=== PATIENT | male | born 1975 | race Caucasian/White ===

== ENCOUNTER 2017-05-09 08:43 | Emergency (ER) | payer OTHER ==
[2017-05-09] MEDS ORDERED: SODIUM CHLORIDE 0.9% 1,000 ML IV STA (09:06)
--- NOTE | 2017-05-09 09:12 | ED ---
General Adult HPI - General Chief complaint: Syncope Stated complaint: blurred vision, dizziness, neck pain Time Seen by Provider: 05/09/17 08:45 Source: patient, RN notes reviewed Mode of arrival: wheelchair Limitations: no limitations - History of Present Illness Initial comments: This is a 42-year-old male who presents emergency Department with a past medical history significant for smoking. Patient states this morning when he got up he was very lightheaded times a passout he sat down symptoms seemed to resolve but then they came back again. Patient states while sitting there his vision went blurry and it stayed blurry until he was driving into the hospital here at which point time his symptoms resolved. Patient states he had no chest pain or difficulty breathing or shortness of breath. Patient states she did feel a little lymph node on the right side of his neck this morning but he didn' t think much of that. Patient states he is under a lot of stress and works in a job is quite physical. Patient states he had multiple episodes this morning of feeling like he was given a passout but never did. And he states the blurred vision lasted for probably 45 minutes to an hour. Patient states currently he has no blurred vision. - Related Data Home Medications Medication Instructions Recorded Confirmed Diazepam [Valium] 5 mg PO DIRECTED 03/21/14 03/21/14 buPROPion SR [Wellbutrin SR] 150 mg PO DAILY 03/21/14 03/21/14 Previous Rx's Medication Instructions Recorded Ibuprofen [Motrin] 600 mg PO Q6HR PRN #20 tab 03/21/14 predniSONE 50 mg PO DAILY #5 tab 03/21/14 Allergies Allergy/AdvReac Type Severity Reaction Status Date / Time No Known Allergies Allergy Verified 05/09/17 08:51 Review of Systems ROS Statement: Those systems with pertinent positive or pertinent negative responses have been documented in the HPI. ROS Other: All systems not noted in ROS Statement are negative. 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 Patient is nontoxic and well- hydrated and is in no acute distress. ENT: Neck is soft and supple. No significant lymphadenopathy is noted. Oropharynx is clear. Moist mucous membranes. Neck has full range of motion without eliciting any pain. EYES: The sclera were anicteric and conjunctiva were pink and moist. Extraocular movements were intact and pupils were equal round and reactive to light. Eyelids were unremarkable. PULMONARY: Unlabored respirations. Good breath sounds bilaterally. No audible rales rhonchi or wheezing was noted. CARDIOVASCULAR: There is a regular rate and rhythm without any murmurs gallops or rubs. ABDOMEN: Soft and nontender with normal bowel sounds. No palpable organomegaly was noted. There is no palpable pulsatile mass. SKIN: Skin is clear with no lesions or rashes and otherwise unremarkable. NEUROLOGIC: Patient is alert and oriented x3. Cranial nerves II through XII are grossly intact. Motor and sensory are also intact. Normal speech, volume and content. Symmetrical smile. MUSCULOSKELETAL: Normal extremities with adequate strength and full range of motion. No lower extremity swelling or edema. No calf tenderness. LYMPHATICS: No significant lymphadenopathy is noted PSYCHIATRIC: Normal psychiatric evaluation. Limitations: no limitations Course Vital Signs 05/09/17 05/09/17 05/09/17 08:47 09:07 10:06 Temperature 97.3 F L 98.1 F Pulse Rate 86 71 Pulse Rate [ 76 Sitting] Pulse Rate [ 74 Standing] Pulse Rate [ 71 Supine] Respiratory 18 16 Rate Blood Pressure 157/69 135/86 Blood Pressure 148/86 [Sitting] Blood Pressure 135/72 [Standing] Blood Pressure 137/84 [Supine] O2 Sat by Pulse 99 99 Oximetry Medical Decision Making - Medical Decision Making EKG shows normal sinus rhythm at 70 bpm CA interval is 142 QRS is 88 QT interval 358 QTC is 386. Patient's EKG shows no ST segment elevation or depression or T wave abnormalities are noted. - Lab Data Result diagrams: 05/09/17 09:14 05/09/17 09:14 Lab Results 05/09/17 05/09/17 05/09/17 Range/Units 09:14 09:14 09:14 WBC 6.6 (3.8-10.6) k/uL RBC 5.05 (4.30-5.90) m/uL Hgb 16.1 (13.0-17.5) gm/dL Hct 47.2 (39.0-53.0) % MCV 93.4 (80.0-100.0) fL MCH 31.9 (25.0-35.0) pg MCHC 34.2 (31.0-37.0) g/dL RDW 12.0 (11.5-15.5) % Plt Count 158 (150-450) k/uL PT 10.3 (9.0-12.0) sec INR 1.1 (<1.2) APTT 23.1 (22.0-30.0) sec Sodium 142 (137-145) mmol/L Potassium 4.5 (3.5-5.1) mmol/L Chloride 105 (98-107) mmol/L Carbon Dioxide 28 (22-30) mmol/L Anion Gap 9 mmol/L BUN 13 (9-20) mg/dL Creatinine 1.00 (0.66-1.25) mg/dL Est GFR (MDRD) Af Amer >60 (>60 ml/min/1.73 sqM) Est GFR (MDRD) Non-Af >60 (>60 ml/min/1.73 sqM) Glucose 92 (74-99) mg/dL Calcium 9.9 (8.4-10.2) mg/dL Magnesium 2.0 (1.6-2.3) mg/dL Total Bilirubin 0.6 (0.2-1.3) mg/dL AST 43 (17-59) U/L ALT 57 (21-72) U/L Alkaline Phosphatase 63 (38-126) U/L Total Protein 7.1 (6.3-8.2) g/dL Albumin 4.5 (3.5-5.0) g/dL Disposition Clinical Impression: Near syncope Disposition: Left Against Medical Advice Referrals: Carlyn Henao MD [Primary Care Provider] - 1-2 days Time of Disposition: 10:08
[2017-05-09 09:20] VITALS: PULSE 71
[2017-05-09 09:49] LABS: INR 1.1 (<1.2); Partial Thromboplastin Time 23.1 sec (22.0-30.0); Prothrombin Time 10.3 sec (9.0-12.0)
[2017-05-09 09:51] LABS: ALT 57 U/L (21-72); AST 43 U/L (17-59); Albumin 4.5 g/dL (3.5-5.0); Alkaline Phosphatase 63 U/L (38-126); Anion Gap 9 mmol/L; Blood Urea Nitrogen 13 mg/dL (9-20); Calcium 9.9 mg/dL (8.4-10.2); Carbon Dioxide 28 mmol/L (22-30); Chloride 105 mmol/L (98-107); Glucose 92 mg/dL (74-99); Potassium 4.5 mmol/L (3.5-5.1); Sodium 142 mmol/L (137-145); Total Bilirubin 0.6 mg/dL (0.2-1.3); Total Protein 7.1 g/dL (6.3-8.2)
[2017-05-09 09:56] LABS: HCT 47.2 % (39.0-53.0); HGB 16.1 gm/dL (13.0-17.5); MCH 31.9 pg (25.0-35.0); MCHC 34.2 g/dL (31.0-37.0); MCV 93.4 fL (80.0-100.0); Mean Platelet Volume 7.9; Platelet Count 158 k/uL (150-450); RBC 5.05 m/uL (4.30-5.90); WBC 6.6 k/uL (3.8-10.6)
--- NOTE | 2017-05-09 10:00 | CT ---
EXAMINATION TYPE: CT brain wo con DATE OF EXAM: 05/09/2017 COMPARISON: NONE HISTORY: blurred vision, dizziness, near syncope CT DLP: 1036 mGycm Automated exposure control for dose reduction was used. FINDINGS: Central structures are midline. There is no evidence of hydrocephalus. No acute focal lesion, mass ef fect or midline shift is seen. I do not see evidence of intracranial blood. There is chronic mucoperiosteal thickening involving the left maxillary sinus. The remainder the para nasal sinuses and mastoids are clear. IMPRESSION: 1. NO ACUTE INTRACRANIAL ABNORMALITY. 2. CHRONIC MUCOPERIOSTEAL THICKENING, LEFT MAXILLARY SINUS.
[2017-05-09 10:01] LABS: Creatine Kinase 511 U/L (55-170)
--- NOTE | 2017-05-09 10:02 | XR ---
EXAMINATION TYPE: XR chest 2V DATE OF EXAM: 05/09/2017 HISTORY: syncope. REFERENCE: Previous study dated 12/12/2008. FINDINGS: The lungs are clear. Pleural spaces are clear. The heart is not enlarged. IMPRESSION: NO ACTIVE INTRATHORACIC DISEASE.
[2017-05-09 10:07] VITALS: BP 135/86; RESP 16; TEMP 98.1
[2017-05-09 10:14] LABS: Creatine Kinase MB 2.4 ng/mL (0.0-2.4); Troponin I <0.012 ng/mL (0.000-0.034)
[2017-05-09 10:19] LABS: Eosinophils # (M) 0.07 k/uL (0-0.7); Lymphocytes # (M) 2.05 k/uL (1.0-4.8); Monocytes # (M) 1.06 k/uL (0-1.0); Neutrophils # (M) 3.43 k/uL (1.3-7.7); Neutrophils % (M) 52 %; Nucleated Red Blood Cells 0 /100 WBC (0-0); Polychromasia Present; Total Cells Counted 100
== END 2017-05-09 10:12 | disposition left against medical advice (07) ==
LOC: EC 08:43
DX: R55 Syncope and collapse (principal); H53.8 Other visual disturbances; M54.2 Cervicalgia; F32.9 Major depressive disorder, single episode, unspecified; F41.9 Anxiety disorder, unspecified; F17.200 Nicotine dependence, unspecified, uncomplicated; Z53.29 Procedure and treatment not carried out because of patient's decision for other reasons; Z79.899 Other long term (current) drug therapy
CPT/HCPCS: 36415; 70450; 71046; 80053; 82550; 82553; 83735; 84484; 85025; 85610; 85730; 93005; 96360; 99284

== ENCOUNTER → 2017-06-10 | Outpatient (CLI) | payer OTHER ==
--- NOTE | 2017-06-10 14:27 | EST ---
EXERCISE STRESS AGE: 42 SEX: M HT: 69" WT: 170 PROTOCOL: Oscar Stress Test. STAGE: IV DURATION OF EXERCISE: 12:00 HEART RATE REST: 90 BLOOD PRESSURE REST: 105/68 MAXIMUM HEART RATE ACHIEVED: 155 MAXIMUM BLOOD PRESSURE: 183/67 85% MPHR: 152 100% MPHR: 179 METS: 12.3 INDICATIONS: Chest pain, syncope CLINICAL INFORMATION: Baseline rhythm is a sinus mechanism, normal axis, normal at intervals. Baseline blood pressure 105/68 mmHg. Patient exercised on protocol for 12 minute reaching a peak heart rate of 155 beats per minute, which is equal to 86% maximum predicted heart rate. Maximum peak blood pressure 183/67 mmHg. Test was terminated due to fatigue. There was no chest pains. Electrocardiograph monitoring revealed no evidence of diagnostic ischemic ST deviation. CONCLUSION: 1. Good exercise tolerance with no symptoms of chest pain. 2. Normal electrocardiographic response to exercise stress testing. MMODL / IJN: [id number] /
== END | disposition home or self-care (01) ==
LOC: RADNMMAIN 11:08
PROVIDERS: ATTEND Internal Medicine
DX: R07.9 Chest pain, unspecified (principal); R55 Syncope and collapse
CPT/HCPCS: 93017

== ENCOUNTER 2017-12-06 12:11 | Emergency (ER) | payer OTHER ==
[2017-12-06 12:24] VITALS: BP 115/69; PULSE 81; RESP 18; TEMP 98.8
[2017-12-06] MEDS ORDERED: KETOROLAC 30 MG/ML 1 ML VIAL IM STA (12:59)
--- NOTE | 2017-12-06 13:06 | ED ---
Back Pain HPI - General Chief Complaint: Back Pain/Injury Stated Complaint: LOWER BACK AND RIGHT HIP PAIN Time Seen by Provider: 12/06/17 12:49 Source: patient, RN notes reviewed Mode of arrival: ambulatory Limitations: no limitations - History of Present Illness Initial Comments: This is a 42-year-old male who presents to the emergency department with chief complaint of low back and right hip pain. 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 He states that on he felt a sudden pain in the right side of his back while at work. He states that when he woke up on Thursday morning he had difficulty getting out of bed due to the pain. He states that the back pain has since gone away. Patient now complains of achiness in his right hip and numbness down the anterior part of the right leg down to his toes. He states his leg feels like its asleep. He states the worst of it is in his minaya. Patient denies any specific injuries or trauma. Denies falls. States he has been taking ibuprofen and Tylenol with minimal relief. Denies saddle paresthesias or loss of bladder or bowel function. Denies fevers or chills, chest pain or shortness of breath, abdominal pain, nausea or vomiting. - Related Data Home Medications Medication Instructions Recorded Confirmed Diazepam [Valium] 5 mg PO DIRECTED 03/21/14 03/21/14 buPROPion SR [Wellbutrin SR] 150 mg PO DAILY 03/21/14 03/21/14 Previous Rx's Medication Instructions Recorded Ibuprofen [Motrin] 600 mg PO Q6HR PRN #20 tab 03/21/14 predniSONE 50 mg PO DAILY #5 tab 03/21/14 Allergies Allergy/AdvReac Type Severity Reaction Status Date / Time No Known Allergies Allergy Verified 12/06/17 12:24 Review of Systems ROS Statement: Those systems with pertinent positive or pertinent negative responses have been documented in the HPI. ROS Other: All systems not noted in ROS Statement are negative. 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 HEENT: Head atraumatic, normocephalic. Pupils are equal, round and reactive to light. Extraocular movements intact. Oropharynx moist without erythema or exudate. Neck: Supple. Normal ROM. Cardiovascular: Regular rate and rhythm. No murmurs, rubs or gallops. Chest symmetrical. Respiratory: Lungs clear to auscultation bilaterally. No wheezes, rales or rhonchi. Normal respiratory effort with no use of accessory muscles. Musculoskeletal: Normal range of motion of bilateral hips. There is minimal tenderness over the greater trochanter. Sensation is intact. Pedal pulses are 2+ equal and palpable bilaterally. Skin: [place], warm and dry. Neurological: Alert and oriented x3. CN II-XII grossly intact. Speech is fluent and answers are appropriate. No focal neuro deficits. Psychiatric: Normal mood and affect. No overt signs of depression or anxiety noted. Limitations: no limitations Back exam: Present: normal inspection, full ROM. Absent: tenderness, paraspinal tenderness, vertebral tenderness Course Vital Signs 12/06/17 12:21 Temperature 98.8 F Pulse Rate 81 Respiratory 18 Rate Blood Pressure 115/69 O2 Sat by Pulse 100 Oximetry Medical Decision Making - Medical Decision Making This is a 42-year-old male presents to the emergency department with chief complaint of low back and right hip pain. Patient states that the low back pain has since dissipated but now experiences an ache in his right hip and paresthesias down the right leg. Patient is neurovascularly intact. He is ambulating normally. Computed tomography scan of the lumbosacral spine and right hip was obtained. These revealed no acute abnormalities. Computed tomography scan of the lumbar spine did reveal evidence for mild degenerative changes in L3 to L5. Patient's vital signs are stable and he is in no acute distress. He will be discharged home with recommendation to take anti- inflammatories. Recommended following up with his primary care provider within 1-2 days. - Radiology Data Radiology results: report reviewed, image reviewed CT lumbar spine impression: Mild degenerative disc disease L3 through L4 and L4 through L5. Mild central canal compromise L3 to L4 and L4 to L5. No significant neural compression. CT right hip impression: Normal computed tomography scan of the right hip. CT sacrum impression: Normal computed tomography scan of the sacrum. Disposition Clinical Impression: Right hip pain, Paresthesia of lower extremity Disposition: HOME SELF-CARE Condition: Good Instructions: Acute Low Back Pain (ED), Hip Pain (ED), Paresthesia (ED) Additional Instructions: Please take ibuprofen 600 mg every 6 hours as needed. Please follow up with primary care provider within 1-2 days. Return to emergency department if symptoms should worsen or any concerns arise. Is patient prescribed a controlled substance at d/c from ED?: No Referrals: None,Stated [Primary Care Provider] - 1-2 days Time of Disposition: 14:13
--- NOTE | 2017-12-06 13:50 | CT ---
EXAMINATION TYPE: CT hip RT wo con DATE OF EXAM: 12/06/2017 COMPARISON: None. HISTORY: right hip pain CT DLP: 358.52 mGycm Automated exposure control for dose reduction was used. FINDINGS: The soft tissues are unremarkable. There is no evidence of fracture, dislocation or other o sseous lesion. IMPRESSION: NORMAL CT SCAN OF THE RIGHT HIP.
--- NOTE | 2017-12-06 13:53 | CT ---
EXAMINATION TYPE: CT lumbar spine wo con DATE OF EXAM: 12/06/2017 1:46 PM COMPARISON: HISTORY: Patient complains of low back pain with numbness to right front thigh. CT DLP: 978.58 mGycm Automated exposure control for dose reduction was used. Unenhanced CT of the lumbar spine was performed. Bone and soft tissue window settings are submitted as well as coronal and sagittal reconstructions. FINDINGS: There are mild emphysematous changes in the visualized portions of the lungs. No pleural fl uid is identified. There is mild atheromatous calcification of the arterial vessels. Paraspinal soft tissues are otherwi se unremarkable. Vertebral body height and alignment are maintained. There is no spondylolysis or spondylolisthesis. N o fractures are identified. Intervertebral foramina are widely maintained. There is a concentric disc bulge at L3-4. There is mil d trefoiling of the thecal sac at this level. There is also a concentric disc displacement at L4-5 and there is mild trefoiling of the thecal sac a t this level. No definite protrusion is identified. IMPRESSION: 1. MILD DEGENERATIVE DISC DISEASE, L3-4 AND L4-5. 2. MILD CENTRAL CANAL COMPROMISE, L3-4 AND L4-5. 3. NO SIGNIFICANT NEURAL COMPRESSION. 4. MILD EMPHYSEMATOUS CHANGES WITHIN THE LUNGS.
--- NOTE | 2017-12-06 13:55 | CT ---
EXAMINATION TYPE: CT sacrum wo con DATE OF EXAM: 12/06/2017 COMPARISON: None. HISTORY: Patient complains of low back pain with numbness to right front thigh. CT DLP: 207.17 mGycm Automated exposure control for dose reduction was used. FINDINGS: Soft tissues about the sacrum are normal. Bony structures about the sacrum are normal. There is no fracture, dislocation or bony destructive le arielle. IMPRESSION: NORMAL CT SCAN OF THE SACRUM.
== END 2017-12-06 14:39 | disposition home or self-care (01) ==
LOC: EC 12:11
DX: M25.551 Pain in right hip (principal); R20.2 Paresthesia of skin; M47.816 Spondylosis without myelopathy or radiculopathy, lumbar region; F41.9 Anxiety disorder, unspecified; F32.9 Major depressive disorder, single episode, unspecified; F17.200 Nicotine dependence, unspecified, uncomplicated; Z79.899 Other long term (current) drug therapy
CPT/HCPCS: 72131; 73700; 72192; 99283; 96372; J1885

== ENCOUNTER → 2017-12-10 | Outpatient (CLI) | payer OTHER ==
--- NOTE | 2017-12-11 09:58 | MR ---
EXAMINATION TYPE: MR lumbar spine wo con DATE OF EXAM: 12/10/2017 COMPARISON: None HISTORY: Back pain TECHNIQUE: Multiplanar, multisequence images of the lumbar spine were acquired. FINDINGS: The lumbar spine vertebral bodies maintain normal vertebral body heights and alignment. Bon e marrow signal is within normal limits. Conus medullaris terminates at L1-L2. Distal spinal cord brandon ears unremarkable in signal and morphology. Multilevel disc desiccation is seen. L1-L2: There is a small broad-based disc bulge without significant spinal canal stenosis or neural fo raminal narrowing. L2-L3: There is a broad-based disc bulge with right paracentral annular tear and facet arthropathy re sulting in minimal bilateral neural foraminal narrowing. No significant spinal canal stenosis. L3-L4: There is a broad-based disc bulge, ligamentum flavum buckling and facet arthropathy resulting in mild bilateral neural foraminal narrowing. No significant spinal canal stenosis. L4-L5: There is a right foraminal disc herniation and annular tear resulting in moderate right neural foraminal narrowing and impression upon the exiting L4 nerve root. Left neural foramen and spinal ca nal are patent although there is facet arthropathy and ligamentum flavum buckling. L5-S1: There is a central disc herniation with caudal extrusion of 5 mm mildly narrowing the subarach noid space although there is no significant spinal canal stenosis. Findings are superimposed upon a b road-based disc bulge which results in mild bilateral neural foraminal narrowing in combination with facet arthropathy. IMPRESSION: 1. Right foraminal disc herniation and annular tear at L4-L5 creating moderate right neural foraminal narrowing impressing upon the exiting right L4 nerve root. 2. Central disc herniation at L5-S1 with caudal extrusion of 5 mm. No resultant significant spinal ca nal stenosis. Mild bilateral neural foraminal narrowing is seen. 3. Mild degenerative disc disease at L1-L4 resulting in minimal neural foraminal narrowing at L2-L3 a nd mild neural foraminal narrowing at L3-L4.
== END | disposition home or self-care (01) ==
LOC: RADMRIMAIN 13:20
PROVIDERS: ATTEND Emergency Medicine
DX: M99.73 Connective tissue and disc stenosis of intervertebral foramina of lumbar region (principal); M51.27 Other intervertebral disc displacement, lumbosacral region; M51.36 Other intervertebral disc degeneration, lumbar region
CPT/HCPCS: 72148

== ENCOUNTER 2017-12-25 12:32 | Emergency (ER) | payer OTHER ==
[2017-12-25 12:54] VITALS: BP 152/88; PULSE 96; RESP 18; TEMP 99
--- NOTE | 2017-12-25 13:02 | ED ---
Overdose HPI - General Chief Complaint: Overdose Stated Complaint: Overdose Time Seen by Provider: 12/25/17 12:38 Source: EMS, RN notes reviewed, old records reviewed Mode of arrival: EMS Limitations: no limitations - History of Present Illness Initial Comments: 42 year old male presents with overdose on suboxone and heroin. Patient reports he has had substance abuse for many years, and has never been treated at a hospital in the past for OD. He arrives with family memver after EMS gave patient narcan. At this time he is alert, oriented, and reports he feels well. Patient states that he does not want to stay in the hospital. Denies any other complaints, does state that this was accidental and no suicidal attempt for overdose. - Related Data Home Medications Medication Instructions Recorded Confirmed No Known Home Medications 12/25/17 12/25/17 Allergies Allergy/AdvReac Type Severity Reaction Status Date / Time No Known Allergies Allergy Verified 12/25/17 12:55 Review of Systems ROS Statement: Those systems with pertinent positive or pertinent negative responses have been documented in the HPI. ROS Other: All systems not noted in ROS Statement are negative. 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 Limitations: no limitations General appearance: alert, in no apparent distress Head exam: Present: atraumatic, normocephalic, normal inspection Eye exam: Present: normal appearance, PERRL, EOMI. Absent: scleral icterus, conjunctival injection, periorbital swelling ENT exam: Present: normal exam, mucous membranes moist Neck exam: Present: normal inspection. Absent: tenderness, meningismus, lymphadenopathy Respiratory exam: Present: normal lung sounds bilaterally. Absent: respiratory distress, wheezes, rales, rhonchi, stridor Cardiovascular Exam: Present: regular rate, normal rhythm, normal heart sounds. Absent: systolic murmur, diastolic murmur, rubs, gallop, clicks Neurological exam: Present: alert, oriented X3, CN II-XII intact Psychiatric exam: Present: normal affect, normal mood Skin exam: Present: warm, dry, intact, normal color. Absent: rash Course Vital Signs 12/25/17 12:50 Temperature 99 F Pulse Rate 96 Respiratory 18 Rate Blood Pressure 152/88 O2 Sat by Pulse 99 Oximetry Medical Decision Making - Medical Decision Making 42 year old male presents with OD on heroin and suboxone, he was given Narcan by EMS. Patient informed that we like to monitor patient for 1.5 hours for chance of relapse and needing another dose of narcan. Patient refuses and states he wants to leave. Patient informed signing out AMA. Patient agrees to. Denies suicidal ideation and is alert and oriented. Patient was explained this by multiple nursing staff as well. Contineus to want to leave AMA. Disposition Clinical Impression: Overdose Disposition: Left Against Medical Advice Condition: Good Instructions: Narcotic Abuse (ED) Additional Instructions: Follow up with PCP. Return to ED if any alarming signs of symptoms occur. Patient advised to follow up with Outpatient abuse services. Is patient prescribed a controlled substance at d/c from ED?: No Referrals: None,Stated [Primary Care Provider] - 1-2 days Cindy Torrez MD [STAFF PHYSICIAN] - 1-2 days Time of Disposition: 13:00
== END 2017-12-25 13:14 | disposition left against medical advice (07) ==
LOC: EC 12:32
DX: T40.1X1A Poisoning by heroin, accidental (unintentional), initial encounter (principal); T40.4X1A Poisoning by other synthetic narcotics, accidental (unintentional), initial encounter; T50.7X1A Poisoning by analeptics and opioid receptor antagonists, accidental (unintentional), initial encounter; F17.200 Nicotine dependence, unspecified, uncomplicated
CPT/HCPCS: 99284

== ENCOUNTER 2022-12-21 14:25 | Emergency (ER) | payer OTHER ==
[2022-12-21] MEDS ORDERED: SODIUM CHLORIDE 0.9% 1,000 ML IV ONE (14:33)
[2022-12-21] MEDS ORDERED: ACETAMINOPHEN TAB 500 MG TAB PO STA (14:33)
[2022-12-21 14:39] VITALS: TEMP 97.7
--- NOTE | 2022-12-21 15:10 | ED ---
General Adult HPI - General Chief complaint: Altered Mental Status Stated complaint: poss OD Time Seen by Provider: 12/21/22 14:30 Source: patient, EMS, RN notes reviewed, old records reviewed Mode of arrival: EMS Limitations: no limitations - History of Present Illness Initial comments: This a 47-year-old male who is brought in by EMS because patient was having a decreased level of consciousness. When EMS arrived and going in and out of consciousness and they gave him 0.5 of Narcan and the patient became much more alert and awake and vitals were stable at that time. Patient states he has a headache now and he believes is because the Narcan. Patient does agree that he took some narcotics today. Patient states he was clean for 9 months up until this point. Patient denies any nausea or vomiting. Patient has any chest pain or difficulty breathing. Patient denies any abdominal pain. - Related Data Home Medications Medication Instructions Recorded Confirmed No Known Home Medications 12/25/17 12/25/17 Allergies Allergy/AdvReac Type Severity Reaction Status Date / Time No Known Allergies Allergy Verified 12/25/17 12:55 Review of Systems ROS Statement: Those systems with pertinent positive or pertinent negative responses have been documented in the HPI. ROS Other: All systems not noted in ROS Statement are negative. 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 Patient is nontoxic and well- hydrated and is in mild distress. ENT: Neck is soft and supple. No significant lymphadenopathy is noted. Oropharynx is clear. Moist mucous membranes. Neck has full range of motion without eliciting any pain. EYES: The sclera were anicteric and conjunctiva were pink and moist. Extraocular movements were intact and pupils were equal round and reactive to light. Eyelids were unremarkable. PULMONARY: Unlabored respirations. Good breath sounds bilaterally. No audible rales rhonchi or wheezing was noted. CARDIOVASCULAR: There is a regular rate and rhythm without any murmurs gallops or rubs. ABDOMEN: Soft and nontender with normal bowel sounds. SKIN: Skin is clear with no lesions or rashes and otherwise unremarkable. NEUROLOGIC: Patient is alert and oriented x3. Cranial nerves II through XII are grossly intact. Motor and sensory are also intact. Normal speech, volume and content. Symmetrical smile. MUSCULOSKELETAL: Normal extremities with adequate strength and full range of motion. LYMPHATICS: No significant lymphadenopathy is noted PSYCHIATRIC: Normal psychiatric evaluation. Limitations: no limitations Course Vital Signs 12/21/22 14:31 Temperature 97.7 F Pulse Rate 61 Respiratory 16 Rate Blood Pressure 124/72 O2 Sat by Pulse 94 L Oximetry Medical Decision Making - Medical Decision Making Was pt. sent in by a medical professional or institution (ERIC Nguyen, PROTOTYPE ENGINEER MANAGER, urgent care, hospital, or longterm...) When possible be specific @ -[No] Did you speak to anyone other than the patient for history (EMS, parent, family, police, friend...)? What history was obtained from this source @ -[No] Did you review nursing and triage notes (agree or disagree)? Why? @ -[I reviewed and agree with nursing and triage notes] Were old charts reviewed (outside hosp., previous admission, EMS record, old EKG, old radiological studies, urgent care reports/EKG's, longterm records)? Report findings @ -[No old charts were reviewed] Differential Diagnosis (chest pain, altered mental status, abdominal pain women, abdominal pain men, vaginal bleeding, weakness, fever, dyspnea, syncope, headache, dizziness, GI bleed, back pain, seizure, CVA, palpatations, mental health, musculoskeletal)? @ -Differential Altered Mental Status: Hypoglycemia, DKA, hypercapnia, ETOH, overdose, CO poisoning, trauma, myxedema coma, HTN encephalopathy, infection, encephalitis, psychosis, intercranial hemorrhage, hepatic encephalopathy, meningitis, CVA, this is not meant to be an all-inclusive list EKG interpreted by me (3pts min.). @ -[As above] X-rays interpreted by me (1pt min.). @ -[None done] CT interpreted by me (1pt min.). @ -[None done] U/S interpreted by me (1pt. min.). @ -[None done] What testing was considered but not performed or refused? (CT, X-rays, U/S, labs)? Why? @ -[None] What meds were considered but not given or refused? Why? @ -[None] Did you discuss the management of the patient with other professionals (professionals i.e. , PA, PROTOTYPE ENGINEER MANAGER, lab, RT, psych nurse, perinatal social worker, recreation therapy director, teacher, railway patrol officer, manager women)? Give summary @ -[No] Was smoking cessation discussed for >3mins.? @ -[No] Was critical care preformed (if so, how long)? @ -[No] Were there social determinants of health that impacted care today? How? (Homelessness, low income, unemployed, alcoholism, drug addiction, tr ansportation, low edu. Level, literacy, decrease access to med. care, long term, rehab)? @ -[No] Was there de-escalation of care discussed even if they declined (Discuss DNR or withdrawal of care, Hospice)? DNR status @ -[No] What co-morbidities impacted this encounter? (DM, HTN, Smoking, COPD, CAD, Cancer, CVA, ARF, Chemo, Hep., AIDS, mental health diagnosis, sleep apnea, morbid obesity)? @ -[None] Was patient admitted / discharged? Hospital course, mention meds given and route, prescriptions, significant lab abnormalities, going to OR and other pertinent info. @ -Received Tylenol and a liter of fluid in the emergency department. I went back into the room and reevaluated him he was feeling considerably better and stated he was very upset with himself or having fallen off the wagon. Patient did want to be discharged home after he can help with some transportation. Undiagnosed new problem with uncertain prognosis? @ -[No] Drug Therapy requiring intensive monitoring for toxicity (Heparin, Nitro, Insu jl, Cardizem)? @ -[No] Were any procedures done? @ -[No] Diagnosis/symptom? @ -Opiate overdose Acute, or Chronic, or Acute on Chronic? @ -Acute Uncomplicated (without systemic symptoms) or Complicated (systemic symptoms)? @ -Complicated Side effects of treatment? @ -[No] Exacerbation, Progression, or Severe Exacerbation? @ -[No] Poses a threat to life or bodily function? How? (Chest pain, [place], [place], pneumonia, PE, COPD, DKA, ARF, appy, cholecystitis, CVA, Diverticulitis, Homicidal, Suicidal, threat to staff... and all critical care pts) @ -Yes this could stop him from breathing and kill him Disposition Clinical Impression: Opiate overdose Disposition: HOME SELF-CARE Condition: Good Instructions (If sedation given, give patient instructions): Opioid Use Disorder (ED) Is patient prescribed a controlled substance at d/c from ED?: No Referrals: None,Stated [Primary Care Provider] - 1-2 days Time of Disposition: 15:48
[2022-12-21 16:02] VITALS: BP 118/83; PULSE 59; RESP 18
== END 2022-12-21 16:05 | disposition home or self-care (01) ==
LOC: EC 14:25
DX: T40.601A Poisoning by unspecified narcotics, accidental (unintentional), initial encounter (principal); F12.90 Cannabis use, unspecified, uncomplicated; Z86.59 Personal history of other mental and behavioral disorders
CPT/HCPCS: 96360; 99285

== ENCOUNTER 2023-08-29 15:33 | Inpatient (IN) | payer MEDICAID, OTHER ==
--- NOTE | 2023-08-29 16:56 | ED ---
Psych HPI - General Chief Complaint: Psychiatric Symptoms Stated Complaint: Mental health eval Time Seen by Provider: 08/29/23 16:20 Source: patient, RN notes reviewed, old records reviewed, Caregiver Mode of arrival: ambulatory Limitations: altered mental status - History of Present Illness Initial Comments: This is a 48-year-old male with a complex presentation. Patient comes in for evaluation regarding psychiatric illness concern for seeing things hearing things and increasing paranoia. Patient states he has suffered from psychiatric illness in the past with no formal diagnosis or treatment. Patient does have a long history of substance abuse but also long recent history of not using any illicit drugs greater than a year. Patient at this point is feeling very depressed doing to these pervasive thoughts and feels like he does not want to live anymore and presents to the ER for further need for psychiatric evaluation, patient is also concerned that he may have underlying health issues MD Complaint: suicidal ideation, feels depressed -: unknown Associated Psychiatric Symptoms: racing thoughts, auditory hallucinations Quality: intermittent Improves With: none Worsens With: none Context: not taking psychiatric medications, significant life stressor Associated Symptoms: denies other symptoms Treatments Prior to Arrival: placed on mental health hold If Self Harm: admits thoughts of self harm - Related Data Home Medications Medication Instructions Recorded Confirmed No Known Home Medications 12/25/17 08/30/23 Allergies Allergy/AdvReac Type Severity Reaction Status Date / Time No Known Allergies Allergy Verified 08/29/23 16:58 Review of Systems ROS Statement: Those systems with pertinent positive or pertinent negative responses have been documented in the HPI. ROS Other: All systems not noted in ROS Statement are negative. 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 Absent: scleral icterus, co njunctival injection, periorbital swelling ENT exam: Present: normal exam, mucous membranes moist Neck exam: Present: normal inspection. Absent: tenderness, meningismus, lymphadenopathy Respiratory exam: Present: normal lung sounds bilaterally. Absent: respiratory distress, wheezes, rales, rhonchi, stridor Cardiovascular Exam: Present: regular rate, normal rhythm, normal heart sounds. Absent: systolic murmur, diastolic murmur, rubs, gallop, clicks GI/Abdominal exam: Present: soft, normal bowel sounds. Absent: distended, tenderness, guarding, rebound, rigid Extremities exam: Present: normal inspection, full ROM, normal capillary refill. Absent: tenderness, pedal edema, joint swelling, calf tenderness Back exam: Present: normal inspection Neurological exam: Present: alert, oriented X3, CN II-XII intact Psychiatric exam: Present: normal affect, normal mood Skin exam: Present: warm, dry, intact, normal color. Absent: rash Course Vital Signs 08/29/23 15:44 Temperature 98.0 F Pulse Rate 101 H Respiratory 18 Rate Blood Pressure 134/81 O2 Sat by Pulse 100 Oximetry - Reevaluation(s) Reevaluation #1: 08/29/23 16:59 Medical records reviewed Reevaluation #2: 08/29/23 16:59 Patient symptoms unchanged Reevaluation #3: 08/29/23 17:00 Patient informed of results questions answered Reevaluation #4: Was pt. sent in by a medical professional or institution (, PA, BLOWER INSULATOR, urgent care, hospital, or halfway...) When possible be specific @ -no Did you speak to anyone other than the patient for history (EMS, parent, family, police, friend...)? What history was obtained from this source @ -no Did you review nursing and triage notes (agree or disagree)? Why? @ -agree Are old charts reviewed (outside hosp., previous admission, EMS record, old EKG, old radiological studies, urgent care reports/EKG's, halfway records)? Report findings @ -yes Differential Diagnosis (chest pain, altered mental status, abdominal pain women, abdominal pain men, vaginal bleeding, weakness, fever, dyspnea, syncope, headache, dizziness, GI bleed, back pain, seizure, CVA, palpatations, mental health, musculoskeletal)? @ -prior EKG interpreted by me (3pts min.). @ -no X-rays interpreted by me (1pt min.). @ -no CT interpreted by me (1pt min.). @ -no U/S interpreted by me (1pt. min.). @ -no What testing was considered but not performed or refused? (CT, X-rays, U/S, labs)? Why? @ -none What meds were considered but not given or refused? Why? @ -none Did you discuss the management of the patient with other professionals (professionals i.e. Dr., PA, BLOWER INSULATOR, lab, RT, psych nurse, social worker clinical, senior attorney, teacher, fire control officer, corrections caseworker)? Give summary @ -no Was smoking cessation discussed for >3mins.? @ -no Was critical care preformed (if so, how long)? @ -no Were there social determinants of health that impacted care today? How? (Homele ssness, low income, unemployed, alcoholism, drug addiction, transportation, low edu. Level, literacy, decrease access to med. care, senior living, rehab)? @ -none Was there de-escalation of care discussed even if they declined (Discuss DNR or withdrawal of care, Hospice)? DNR status @ -no What co-morbidities impacted this encounter? (DM, HTN, Smoking, COPD, CAD, Cancer, CVA, ARF, Chemo, Hep., AIDS, mental health diagnosis, sleep apnea, morbid obesity)? @ -none Was patient admitted / discharged? Hospital course, mention meds given and route, prescriptions, significant lab abnormalities, going to OR and other pertinent info. @ -48 mildly admitted for psychiatric evaluation and treatment Undiagnosed new problem with uncertain prognosis? @ -no Drug Therapy requiring intensive monitoring for toxicity (Heparin, Nitro, Insulin, Cardizem)? @ -no Were any procedures done? @ -no Diagnosis/symptom? @ -Acute psychosis Acute, or Chronic, or Acute on Chronic? @ -Acute Uncomplicated (without systemic symptoms) or Complicated (systemic symptoms)? @ -Complicated Side effects of treatment? @ -no Exacerbation, Progression, or Severe Exacerbation? @ -exacerbation Poses a threat to life or bodily function? How? (Chest pain, [place], [place], pneumonia, PE, COPD, DKA, ARF, appy, cholecystitis, CVA, Diverticulitis, Homicidal, Suicidal, threat to staff... and all critical care pts) @ -yes with significant psychiatric illness Medical Decision Making - Medical Decision Making 48 male will be admitted for psychiatric evaluation and treatment - Lab Data Result diagrams: 08/29/23 17:39 08/29/23 17:39 Lab Results 08/29/23 08/29/23 08/29/23 Range/Units 17:39 17:39 17:39 WBC 10.7 H (3.8-10.6) k/uL RBC 5.06 (4.30-5.90) m/uL Hgb 16.0 (13.0-17.5) gm/dL Hct 48.3 (39.0-53.0) % MCV 95.3 (80.0-100.0) fL MCH 31.5 (25.0-35.0) pg MCHC 33.1 (31.0-37.0) g/dL RDW 11.8 (11.5-15.5) % Plt Count 237 (150-450) k/uL MPV 8.2 Neutrophils % 62 % Lymphocytes % 26 % Monocytes % 7 % Eosinophils % 1 % Basophils % 1 % Neutrophils # 6.7 (1.3-7.7) k/uL Lymphocytes # 2.8 (1.0-4.8) k/uL Monocytes # 0.7 (0-1.0) k/uL Eosinophils # 0.2 (0-0.7) k/uL Basophils # 0.1 (0-0.2) k/uL Sodium 139 (137-145) mmol/L Potassium 3.7 (3.5-5.1) mmol/L Chloride 105 (98-107) mmol/L Carbon Dioxide 25 (22-30) mmol/L Anion Gap 9 mmol/L BUN 8 L (9-20) mg/dL Creatinine 1.05 (0.66-1.25) mg/dL Est GFR (CKD-EPI)AfAm >90 (>60 ml/min/1.73 sqM) Est GFR (CKD-EPI)NonAf 85 (>60 ml/min/1.73 sqM) Glucose 128 H (74-99) mg/dL Estimated Ave Glu mg/dL mg/dL Hemoglobin A1c (<=6.0) % Calcium 9.5 (8.4-10.2) mg/dL Total Bilirubin 0.6 (0.2-1.3) mg/dL AST 39 (17-59) U/L ALT 32 (4-49) U/L Alkaline Phosphatase 58 (38-126) U/L Total Protein 6.9 (6.3-8.2) g/dL Albumin 4.6 (3.5-5.0) g/dL Triglycerides (0.00-149.00) mg/dL Cholesterol (0.00-200.00) mg/dL LDL Cholesterol, Calc (0.0-131.0) mg/dL VLDL Cholesterol, Calc (5.00-40.00) mg/dL HDL Cholesterol (40.00-60.00) mg/dL Cholesterol/HDL Ratio Ratio Lipase 64 (23-300) U/L TSH (0.465-4.680) mIU/L Urine Color Colorless Urine Appearance Clear (Clear) Urine pH 6.0 (5.0-8.0) Ur Specific [place] 1.004 (1.001-1.035) Urine Protein Negative (Negative) Urine Glucose (UA) Negative (Negative) Urine Ketones Negative (Negative) Urine Blood Negative (Negative) Urine Nitrite Negative (Negative) Urine Bilirubin Negative (Negative) Urine Urobilinogen <2.0 (<2.0) mg/dL Ur Leukocyte Esterase Negative (Negative) Salicylates <1.0 mg/dL Urine Opiates Screen Not Detected (NotDetected) Ur Oxycodone Screen Not Detected (NotDetected) Urine Methadone Screen Not Detected (NotDetected) Acetaminophen <10.0 ug/mL Ur Barbiturates Screen Not Detected (NotDetected) U Tricyclic Antidepress Not Detected (NotDetected) Ur Phencyclidine Scrn Not Detected (NotDetected) Ur Amphetamines Screen Not Detected (NotDetected) U Methamphetamines Scrn Not Detected (NotDetected) U Benzodiazepines Scrn Not Detected (NotDetected) Urine Cocaine Screen Not Detected (NotDetected) U Marijuana (THC) Screen Not Detected (NotDetected) Serum Alcohol <10 mg/dL SARS-CoV-2 (PCR) (Not Detectd) 04/27/24 04/27/24 04/27/24 Range/Units 17:39 17:39 22:30 WBC (3.8-10.6) k/uL RBC (4.30-5.90) m/uL Hgb (13.0-17.5) gm/dL Hct (39.0-53.0) % MCV (80.0-100.0) fL MCH (25.0-35.0) pg MCHC (31.0-37.0) g/dL RDW (11.5-15.5) % Plt Count (150-450) k/uL MPV Neutrophils % % Lymphocytes % % Monocytes % % Eosinophils % % Basophils % % Neutrophils # (1.3-7.7) k/uL Lymphocytes # (1.0-4.8) k/uL Monocytes # (0-1.0) k/uL Eosinophils # (0-0.7) k/uL Basophils # (0-0.2) k/uL Sodium (137-145) mmol/L Potassium (3.5-5.1) mmol/L Chloride (98-107) mmol/L Carbon Dioxide (22-30) mmol/L Anion Gap mmol/L BUN (9-20) mg/dL Creatinine (0.66-1.25) mg/dL Est GFR (CKD-EPI)AfAm (>60 ml/min/1.73 sqM) Est GFR (CKD-EPI)NonAf (>60 ml/min/1.73 sqM) Glucose (74-99) mg/dL Estimated Ave Glu mg/dL 114 mg/dL Hemoglobin A1c 5.6 (<=6.0) % Calcium (8.4-10.2) mg/dL Total Bilirubin (0.2-1.3) mg/dL AST (17-59) U/L ALT (4-49) U/L Alkaline Phosphatase (38-126) U/L Total Protein (6.3-8.2) g/dL Albumin (3.5-5.0) g/dL Triglycerides 153.00 H (0.00-149.00) mg/dL Cholesterol 196.00 (0.00-200.00) mg/dL LDL Cholesterol, Calc 104.1 (0.0-131.0) mg/dL VLDL Cholesterol, Calc 30.60 (5.00-40.00) mg/dL HDL Cholesterol 61.30 H (40.00-60.00) mg/dL Cholesterol/HDL Ratio 3.20 Ratio Lipase (23-300) U/L TSH 0.724 (0.465-4.680) mIU/L Urine Color Urine Appearance (Clear) Urine pH (5.0-8.0) Ur Specific [place] (1.001-1.035) Urine Protein (Negative) Urine Glucose (UA) (Negative) Urine Ketones (Negative) Urine Blood (Negative) Urine Nitrite (Negative) Urine Bilirubin (Negative) Urine Urobilinogen (<2.0) mg/dL Ur Leukocyte Esterase (Negative) Salicylates mg/dL Urine Opiates Screen (NotDetected) Ur Oxycodone Screen (NotDetected) Urine Methadone Screen (NotDetected) Acetaminophen ug/mL Ur Barbiturates Screen (NotDetected) U Tricyclic Antidepress (NotDetected) Ur Phencyclidine Scrn (NotDetected) Ur Amphetamines Screen (NotDetected) U Methamphetamines Scrn (NotDetected) U Benzodiazepines Scrn (NotDetected) Urine Cocaine Screen (NotDetected) U Marijuana (THC) Screen (NotDetected) Serum Alcohol mg/dL SARS-CoV-2 (PCR) Not Detected (Not Detectd) Disposition Clinical Impression: Suicidal ideation, Acute anxiety, Depression, Psychosis Disposition: TRANSFER TO PSYCH HOSP/UNIT Condition: Fair Is patient prescribed a controlled substance at d/c from ED?: No
[2023-08-29] MEDS: SODIUM CHLORIDE 0.9% 1,000 ML IV STA (17:42)
[2023-08-29 17:55] LABS: Appearance,Urine Clear (Clear); Basophils # (A) 0.1 k/uL (0-0.2); Basophils % (A) 1 %; Bilirubin,Urine Negative (Negative); Blood,Urine Negative (Negative); Color,Urine Colorless; Eosinophils # (A) 0.2 k/uL (0-0.7); Eosinophils % (A) 1 %; Glucose,Urine (UA) Negative (Negative); HCT 48.3 % (39.0-53.0); Ketones,Urine Negative (Negative); Leukocyte Esterase,Urine Negative (Negative); Lymphocytes # (A) 2.8 k/uL (1.0-4.8); Lymphocytes % (A) 26 %; MCH 31.5 pg (25.0-35.0); MCHC 33.1 g/dL (31.0-37.0); MCV 95.3 fL (80.0-100.0); Mean Platelet Volume 8.2; Monocytes # (A) 0.7 k/uL (0-1.0); Monocytes % (A) 7 %; Neutrophils # (A) 6.7 k/uL (1.3-7.7); Neutrophils % (A) 62 %; Nitrite,Urine Negative (Negative); Platelet Count 237 k/uL (150-450); Protein,Urine Negative (Negative); RBC 5.06 m/uL (4.30-5.90); RDW 11.8 % (11.5-15.5); Specific Gravity,Urine 1.004 (1.001-1.035); Urobilinogen,Urine <2.0 mg/dL (<2.0); WBC 10.7 k/uL (3.8-10.6)
[2023-08-29 18:06] LABS: Amphetamine Screen,Urine Not Detected (NotDetected); Barbiturate Screen,Urine Not Detected (NotDetected); Benzodiazepines Screen,Urine Not Detected (NotDetected); Cocaine Screen,Urine Not Detected (NotDetected); Methadone Screen, Urine Not Detected (NotDetected); Opiate Screen,Urine Not Detected (NotDetected); Oxycodone Screen, Urine Not Detected (NotDetected); Phencyclidine Screen,Urine Not Detected (NotDetected); Tricyclic Antidepressant,Urine Not Detected (NotDetected); Urn Cannabinoid Scrn Not Detected (NotDetected)
[2023-08-29 18:08] LABS: ALT 32 U/L (4-49); AST 39 U/L (17-59); Acetaminophen <10.0 ug/mL; African American GFR (CKD) >90 (>60 ml/min/1.73 sqM); Albumin 4.6 g/dL (3.5-5.0); Alcohol <10 mg/dL; Alkaline Phosphatase 58 U/L (38-126); Anion Gap 9 mmol/L; Blood Urea Nitrogen 8 mg/dL (9-20); Calcium 9.5 mg/dL (8.4-10.2); Carbon Dioxide 25 mmol/L (22-30); Chloride 105 mmol/L (98-107); Glucose 128 mg/dL (74-99); Lipase 64 U/L (23-300); Non-African American GFR(CKD) 85 (>60 ml/min/1.73 sqM); Potassium 3.7 mmol/L (3.5-5.1); Salicylate <1.0 mg/dL; Sodium 139 mmol/L (137-145); Total Bilirubin 0.6 mg/dL (0.2-1.3); Total Protein 6.9 g/dL (6.3-8.2)
[2023-08-29] MEDS: NICOTINE 21MG/24HR PATCH TRANSDERM STA (21:17)
[2023-08-29] MEDS ORDERED: MAG HYDROX/AL HYDROX/SIMETH 355 ML BOTTLE PO PRN (23:35)
[2023-08-29] MEDS ORDERED: hydrOXYzine HCL 50 MG/ML 1 ML VIAL IM PRN (23:35)
[2023-08-29] MEDS ORDERED: MAGNESIUM HYDROXIDE 2,400 MG/30 ML CUP PO PRN (23:35)
[2023-08-30] MEDS: hydrOXYzine HCL 25 MG TAB PO PRN (00:19)
[2023-08-30] MEDS: ACETAMINOPHEN TAB 325 MG TAB PO PRN (00:20)
[2023-08-30] MEDS: NICOTINE 21MG/24HR PATCH TRANSDERM SCH (09:18)
[2023-08-30] MEDS: IBUPROFEN 600 MG TAB PO PRN (09:22)
[2023-08-30 10:00] LABS: LDL Cholesterol,Calculated 104.1 mg/dL (0.0-131.0)
[2023-08-30] MEDS: OLANZapine 5 MG TAB PO SCH (10:35)
[2023-08-30] MEDS: OLANZapine 7.5 MG TAB PO SCH (10:38)
--- NOTE | 2023-08-30 13:16 | P.HP ---
Psychiatric H&P - . H&P Date: 08/30/23 History & Physical: Allergies Allergy/AdvReac Type Severity Reaction Status Date / Time No Known Allergies Allergy Verified 08/29/23 16:58 Vital Signs Temp 97 F L 08/30/23 00:38 Pulse 65 08/30/23 00:38 Resp 18 08/30/23 00:38 BP 115/59 08/30/23 00:38 Pulse Ox 99 08/30/23 00:38 FiO2 Intake & Output 08/29/23 08/30/23 08/30/23 18:59 06:59 18:59 Weight 72.575 kg 68.492 kg 67.9 kg Laboratory Last Values WBC 10.7 k/uL (3.8-10.6) H 08/29/23 17:39 RBC 5.06 m/uL (4.30-5.90) 08/29/23 17:39 Hgb 16.0 gm/dL (13.0-17.5) 08/29/23 17:39 Hct 48.3 % (39.0-53.0) 08/29/23 17:39 MCV 95.3 fL (80.0-100.0) 08/29/23 17:39 MCH 31.5 pg (25.0-35.0) 08/29/23 17:39 MCHC 33.1 g/dL (31.0-37.0) 08/29/23 17:39 RDW 11.8 % (11.5-15.5) 08/29/23 17:39 Plt Count 237 k/uL (150-450) 08/29/23 17:39 MPV 8.2 08/29/23 17:39 Neutrophils % 62 % 08/29/23 17:39 Lymphocytes % 26 % 08/29/23 17:39 Monocytes % 7 % 08/29/23 17:39 Eosinophils % 1 % 08/29/23 17:39 Basophils % 1 % 08/29/23 17:39 Neutrophils # 6.7 k/uL (1.3-7.7) 08/29/23 17:39 Lymphocytes # 2.8 k/uL (1.0-4.8) 08/29/23 17:39 Monocytes # 0.7 k/uL (0-1.0) 08/29/23 17:39 Eosinophils # 0.2 k/uL (0-0.7) 08/29/23 17:39 Basophils # 0.1 k/uL (0-0.2) 08/29/23 17:39 Sodium 139 mmol/L (137-145) 08/29/23 17:39 Potassium 3.7 mmol/L (3.5-5.1) 08/29/23 17:39 Chloride 105 mmol/L (98-107) 08/29/23 17:39 Carbon Dioxide 25 mmol/L (22-30) 08/29/23 17:39 Anion Gap 9 mmol/L 08/29/23 17:39 BUN 8 mg/dL (9-20) L 08/29/23 17:39 Creatinine 1.05 mg/dL (0.66-1.25) 08/29/23 17:39 Est GFR (CKD-EPI)AfAm >90 (>60 ml/min/1.73 sqM) 08/29/23 17:39 Est GFR (CKD-EPI)NonAf 85 (>60 ml/min/1.73 sqM) 08/29/23 17:39 Glucose 128 mg/dL (74-99) H 08/29/23 17:[address] Glu mg/dL 114 mg/dL 08/29/23 17:39 Hemoglobin A1c 5.6 % (<=6.0) 08/29/23 17:39 Calcium 9.5 mg/dL (8.4-10.2) 08/29/23 17:39 Total Bilirubin 0.6 mg/dL (0.2-1.3) 08/29/23 17:39 AST 39 U/L (17-59) 08/29/23 17:39 ALT 32 U/L (4-49) 08/29/23 17:39 Alkaline Phosphatase 58 U/L (38-126) 08/29/23 17:39 Total Protein 6.9 g/dL (6.3-8.2) 08/29/23 17:39 Albumin 4.6 g/dL (3.5-5.0) 08/29/23 17:39 Triglycerides 153.00 mg/dL (0.00-149.00) H 08/29/23 17:39 Cholesterol 196.00 mg/dL (0.00-200.00) 08/29/23 17:39 LDL Cholesterol, Calc 104.1 mg/dL (0.0-131.0) 08/29/23 17:39 VLDL Cholesterol, Calc 30.60 mg/dL (5.00-40.00) 08/29/23 17:39 HDL Cholesterol 61.30 mg/dL (40.00-60.00) H 08/29/23 17:39 Cholesterol/HDL Ratio 3.20 Ratio 08/29/23 17:39 Lipase 64 U/L (23-300) 08/29/23 17:39 TSH 0.724 mIU/L (0.465-4.680) 08/29/23 17:39 Urine Color Colorless 08/29/23 17:39 Urine Appearance Clear (Clear) 08/29/23 17:39 Urine pH 6.0 (5.0-8.0) 08/29/23 17:39 Ur Specific [place] 1.004 (1.001-1.035) 08/29/23 17:39 Urine Protein Negative (Negative) 08/29/23 17:39 Urine Glucose (UA) Negative (Negative) 08/29/23 17:39 Urine Ketones Negative (Negative) 08/29/23 17:39 Urine Blood Negative (Negative) 08/29/23 17:39 Urine Nitrite Negative (Negative) 08/29/23 17:39 Urine Bilirubin Negative (Negative) 08/29/23 17:39 Urine Urobilinogen <2.0 mg/dL (<2.0) 08/29/23 17:39 Ur Leukocyte Esterase Negative (Negative) 08/29/23 17:39 Salicylates <1.0 mg/dL 08/29/23 17:39 Urine Opiates Screen Not Detected (NotDetected) 08/29/23 17:39 Ur Oxycodone Screen Not Detected (NotDetected) 08/29/23 17:39 Urine Methadone Screen Not Detected (NotDetected) 08/29/23 17:39 Acetaminophen <10.0 ug/mL 08/29/23 17:39 Ur Barbiturates Screen Not Detected (NotDetected) 08/29/23 17:39 U Tricyclic Antidepress Not Detected (NotDetected) 08/29/23 17:39 Ur Phencyclidine Scrn Not Detected (NotDetected) 08/29/23 17:39 Ur Amphetamines Screen Not Detected (NotDetected) 08/29/23 17:39 U Methamphetamines Scrn Not Detected (NotDetected) 08/29/23 17:39 U Benzodiazepines Scrn Not Detected (NotDetected) 08/29/23 17:39 Urine Cocaine Screen Not Detected (NotDetected) 08/29/23 17:39 U Marijuana (THC) Screen Not Detected (NotDetected) 08/29/23 17:39 Serum Alcohol <10 mg/dL 08/29/23 17:39 SARS-CoV-2 (PCR) Not Detected (Not Detectd) 08/29/23 22:30 08/30/23 13:07 Patient Name: Juan Pablo Longoria Date of : 77 Patient Status: Inpatient Attending Provider: Paul Porter Date: 08/30/23 16:55 Initialization Date: 08/29/23 16:55 Psychiatric evaluation: This is a psychiatric assessment on Juan Pablo Mcintosh who is a 48-year-old male with a long history of polysubstance use disorder Patient reports that he has had problems with multiple drugs and that he has been self-medicating to treat himself but he thinks that he has an underlying mental illness that nobody has been able to figure out He states that he needs to get to the bottom of this and that he is here for that reason He states that he has been feeling depressed and frustrated and overwhelmed He states that he currently is living in a trailer home and that has been through several different fdc homes and three fourths homes He states that he was last using heroin quite heavily and that alcohol and marijuana has also been a major addiction issues He states that he has been through Suboxone and methadone in the pastHe admits that he has not had any psychiatric follow-up but that he has had few admissions in the past related to his substance use He denies any suicidal ideations or plans but states that he has had some vague thoughts Past history personal social history Patient remains very vague and superficial and seems to be focused more on his current needs and demands Patient reports that he is currently living in a trailer home He states that he is single and never been He states that 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 but has not been employed on a steady basis and that he ends up usually losing the job due to his substance use problems He denies any closeness to any family members Mental status examination: Reveals a thin built male who currently appears in no acute physical distress Patient has multiple tattoos all over his body Patient is alert and oriented to time place and person Patient is cooperative during his interview He makes good eye contact Speech was clear coherent and relevant Thought processes are goal directed sequential and logical although patient remains somewhat garrulous and circumstantial Mood and affect are flat Patient denies any suicidal or homicidal ideations although he does admit feeling overwhelmed and helpless and hopeless Cognitively appears to be intact Patient denies any auditory or visual hallucinations Diagnostic impression: Adjustment disorder with mixed emotional features Depressive disorder unspecified Mood disorder most likely related to polysubstance use Alcohol use disorder unspecified Polysubstance use disorder that includes heroin and cannabis stimulants psychedelics plan: The patient will be hospitalized on the unit for further evaluation and treatment Therapy will be focused on providing supportive care and improving his coping abilities to the multimodal treatment Patient will also participate in outdoor activities individual milieu group OT RT PT and pharmacotherapy Approximate length of stay would be 7 to 10 days Will initially start the patient on Cymbalta 30 mg twice daily and Zyprexa 5 mg twice daily which was started at the time of admission Patient was briefed on the effects and side effects of the medication patient appears to understand well Active Medications Generic Name Dose Route Start Last Admin Trade Name Freq PRN Reason Stop Dose Admin Acetaminophen 650 mg 08/29/23 23:35 08/30/23 00:20 Acetaminophen Tab 325 Mg Tab PO 650 mg Q4HR PRN Administration Mild Pain (Scale 1 to 3) Al Hydroxide/Mg Hydroxide 30 ml 08/29/23 23:35 Mag Hydrox/Al Hydrox/Simeth 355 Ml Bottle PO Q4HR PRN GI Upset Duloxetine HCl 30 mg 08/30/23 21:00 Duloxetine Hcl 30 Mg Capsule.Dr PO BID VONDA Hydroxyzine HCl 50 mg 08/29/23 23:35 08/30/23 09:25 Hydroxyzine Hcl 25 Mg Tab PO 50 mg TID PRN Administration Anxiety Hydroxyzine HCl 50 mg 08/29/23 23:35 Hydroxyzine Hcl 50 Mg/Ml 1 Ml Vial IM TID PRN Severe Anxiety Ibuprofen 600 mg 08/29/23 23:35 08/30/23 09:22 Ibuprofen 600 Mg Tab PO 600 mg Q6HR PRN Administration Moderate Pain (Scale 4 to 6) Magnesium Hydroxide 2,400 mg 08/29/23 23:35 Magnesium Hydroxide 2,400 Mg/30 Ml Cup PO DAILY PRN Constipation Nicotine 1 patch 08/30/23 09:00 08/30/23 09:18 Nicotine 21mg/24hr Patch TRANSDERM 1 patch DAILY VONDA Administration Olanzapine 5 mg 08/30/23 10:30 08/30/23 10:35 Olanzapine 5 Mg Tab PO 5 mg BID VONDA Administration As needed medications include hydroxyzine for anxiety or agitation Other medications will be added as needed if necessary although patient appears to be quite cooperative and relaxed and does not exhibit any psychotic symptoms or any self-abusive behaviors Karson Scherer MD
[2023-08-30] MEDS: DULoxetine HCL 30 MG CAPSULE.DR PO SCH (20:12)
--- NOTE | 2023-08-31 04:46 | P.PN ---
Progress Note - Text Progress Note Date: 08/31/23 Attempted to see the patient in the mental health unit on 08/29 at 2200. The patient refused to be seen or be evaluated.
--- NOTE | 2023-08-31 13:09 | P.PN ---
Progress Note - Text Progress Note Date: 08/31/23 Interval History: Patient was seen wandering the hallways and was directable and agreeable to sp nikunj with telegraphic typewriter mechanic in the office. Patient states that he is having thoughts of giving up and checking out. Patient states that does not know where these feelings are coming from. He states that he felt this way when he was coming off drugs, but he has been sober for quite a while, so he does not understand why he is feeling like this. Rug Touch Up Painter spoke with patient about how polysubstance use affects chemicals in the brain, and patient verbalized understanding. Patient appeared to be fairly anxious, rambling, appears to be fairly hopeless about his substance use and cravings. Rug Touch Up Painter spoke with patient about going to rehab upon discharge, patient agreeable to see if he qualifies. At this time patient endorses suicidal thoughts and denies homicidal ideations, intent or plan. Patient denies any auditory, visual hallucinations and is endorsing paranoia and delusions. Patient denies any side effects from the medications and has been compliant with meds. Mental Status Exam: General Appearance: Patient appears to be older than stated age, is alert, directable, and cooperative. Several tattoos, dressed in his own clothes. Patient is balding, and has no teeth. Behavior: Patient is calmly seated without any agitated behavior. Speech: Patient's speech is fluent and nonpressured. soft spoken Mood/Affect: Mood is hopeless, affect is congruent and constricted. Patient overwhelmed. Suicidality/Homicidality: Patient denies having any suicidal or homicidal ideation intent or plan. Perceptions: Patient denies any visual hallucinations and denies any auditory hallucinations Though content/process: There is no evidence of any delusional thought content and thought process is linear and goal-directed. Rambling, tangential. Memory and concentration: AOX3, grossly intact for the purposes of this session Judgment and insight: Improving mildly Assessment Adjustment disorder with mixed emotional features Depressive disorder unspecified Alcohol use disorder, in early remission Opiate use disorder, in early remission Cannabis use disorder, in early remission Stimulant use disorder, in early remission Nicotine dependance Plan: -Patient continues to meet criteria for inpatient psychiatric admission for symptom stabilization and safety. Patient has signed adult voluntary form and medication consent and was placed in patient's chart. -Medications: change Zyprexa 5 mg po qhs for psychosis/mood stabilization, increase Cymbalta 60mg PO daily for mood/anxiety -When necessary Ativan and Haldol for agitation/aggression. -NRT -nicotine patch -SW on board for discharge planning. Encouraged the patient to participate in milieu. Patient agreeable to be screened for rehab vs 3/4 house
[2023-08-31] MEDS: DULoxetine HCL 30 MG CAPSULE.DR PO ONE (13:50)
[2023-08-31 15:20] VITALS: BMI 22.1
[2023-08-31] MEDS: OLANZapine 5 MG TAB PO SCH (20:11)
--- NOTE | 2023-09-01 01:42 | P.CONS ---
History of Present Illness - Reason for Consult Consult date: 09/01/23 - History of Present Illness The patient is a 48-year-old male with a PMH of polysubstance abuse who presented to the emergency room with complaints of hallucinations and paranoia. The patient was admitted to the mental health unit where he was seen and evaluated. The patient reports that his mental health has recently been deteriorating and that he needed help. He denied any physical complaints at the time of interview. Denied experiencing chest discomfort, shortness of breath, fever, chills, cough, nausea, vomiting, abdominal pain, diarrhea. He denied illicit substance or alcohol use. Does report smoking 1 and half packs of cigarettes daily. Review of systems: Pertinent positives and negatives as discussed in HPI, a complete review of systems was performed and all other systems are negative. Physical examination: General: non toxic, no distress, appears at stated age, normal weight Derm: no unusual rashes/lesions, no unusual ecchymoses, warm, dry Head: atraumatic, normocephalic, symmetric Eyes: EOMI, no lid lag, anicteric sclera ENT: Nose and ears atraumatic, no thrush, no pharyngeal erythema Neck: trachea midline, supple Mouth: no lip lesion, mucus membranes moist Cardiovascular: S1S2 reg, no murmur, no edema Lungs: CTA bilateral, no rhonchi, no rales , no accessory muscle use Abdominal: soft, nontender to palpation, no guarding Ext: no gross muscle atrophy, no contractures, Neuro: No gross focal neuro deficits noted Psych: Alert, oriented, appropriate affect Assessment: Leukocytosis, likely secondary to acute stressor with no signs of active infection at this time Tobacco abuse Psychosis and paranoia Imaging: None performed Data Review: Laboratory evaluation was reviewed with WBC count 10.7, BUN 8, creatinine 1.05, glucose 128 with urine toxicology unremarkable and UA unremarkable Plan: Monitor CBC Defer management of psychosis and paranoia to primary psychiatry service Thank you for allowing us to participate in the care of this patient. We will follow peripherally. Do not hesitate to contact us with questions. Someone can be reached from the [facility] hospitalist group at all hours of the day at [phone]. Past Medical History Past Medical History: Liver Disease, Respiratory Disorder Additional Past Medical History / Comment(s): Diagnosed with Hepatitis C 2012. 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 No active blisters at this time. Chronic back pain. History of Any Multi-Drug Resistant Organisms: None Reported Past Surgical History: Orthopedic Surgery Additional Past Surgical History / Comment(s): KNEE Past Anesthesia/Blood Transfusion Reactions: No Reported Reaction Past Psychological History: Anxiety, Bipolar, Depression Additional Psychological History / Comment(s): Per pt he has a hx of Bipolar untreated. Currently demonstrating hyperverbal, pressured speech w/ complaints of delusions/paranoia. Smoking Status: Current every day smoker Past Alcohol Use History: None Reported Past Drug Use History: Cocaine, Heroin, Marijuana, Methamphetamine Additional Drug Use History / Comment(s): Pt denies using substances since December 2022. Medications and Allergies Home Medications Medication Instructions Recorded Confirmed Type No Known Home Medications 12/25/17 08/30/23 History Allergies Allergy/AdvReac Type Severity Reaction Status Date / Time No Known Allergies Allergy Verified 08/29/23 16:58 Physical Exam Vitals: Vital Signs Temp Pulse BP 08/31/23 06:00 98.7 F 86 126/80 Intake and Output 08/31/23 08/31/23 09/01/23 14:59 22:59 06:59 Other: Weight 67.9 kg Results CBC & Chem 7: 08/29/23 17:39 08/29/23 17:39
[2023-09-01] MEDS: DULoxetine HCL 60 MG CAPSULE.DR PO SCH (08:07)
--- NOTE | 2023-09-01 09:54 | P.PN ---
Progress Note - Text Progress Note Date: 09/01/23 Interval History: Patient was seen today and was agreeable to speak to telegraphic typewriter installer. he states that his appetite is improving. claims his anxiety is still high and continues to focus on the past and his drug use. continues to have mood swings and racing thoughts. Supervisor Paste Plant spoke with patient about how polysubstance use affects chemicals in the brain, and patient verbalized understanding. Patient appeared to be fairly anxious, rambling, appears to be fairly hopeless about his substance use and cravings. At this time patient denies any suicidal thoughts and denies homicidal ideations, intent or plan. Patient denies any auditory, visual hallucinations and is endorsing paranoia and delusions. Patient denies any side effects from the medications and has been compliant with meds. Mental Status Exam: General Appearance: Patient appears to be older than stated age, is alert, directable, and cooperative. Several tattoos, dressed in his own clothes. Patient is balding, and has no teeth. Behavior: Patient is calmly seated without any agitated behavior. Speech: Patient's speech is fluent and nonpressured. soft spoken Mood/Affect: Mood is hopeless, affect is congruent and constricted. Patient overwhelmed. Suicidality/Homicidality: Patient denies having any suicidal or homicidal ideation intent or plan. Perceptions: Patient denies any visual hallucinations and denies any auditory hallucinations Though content/process: There is no evidence of any delusional thought content and thought process is linear and goal-directed. Rambling, tangential. feeling hopeless. Memory and concentration: AOX3, grossly intact for the purposes of this session Judgment and insight: poor, Improving mildly Assessment: Adjustment disorder with mixed emotional features Depressive disorder unspecified Alcohol use disorder, in early remission Opiate use disorder, in early remission Cannabis use disorder, in early remission Stimulant use disorder, in early remission Nicotine dependance Plan: -Patient continues to meet criteria for inpatient psychiatric admission for symptom stabilization and safety. Patient has signed adult voluntary form and medication consent and was placed in patient's chart. -Medications: increase Zyprexa 7.5 mg po qhs for psychosis/mood stabilization, increase Cymbalta 90mg PO daily for mood/anxiety -When necessary Ativan and Haldol for agitation/aggression. -NRT -nicotine patch -SW on board for discharge planning. Encouraged the patient to participate in milieu. Patient agreeable to be screened for rehab vs 3/4 house.
[2023-09-01] MEDS: OLANZapine 2.5 MG TAB PO SCH (20:09)
[2023-09-02] MEDS: DULoxetine HCL 30 MG CAPSULE.DR PO SCH ×2 (08:15→22:41)
--- NOTE | 2023-09-02 12:01 | P.PN ---
Progress Note - Text Progress Note Date: 09/02/23 Interval History: Patient was seen today and was agreeable to speak to check writer salesperson in the office. Ryann infante states that he is "wiped out" today. He states that his anxiety is "off the charts". Patient appeared to be fairly anxious and rambling, mildly improving. Disposal Worker encouraged patient to use his PRN Visteral to help calm his anxiety. Patient agreeable. Patient claims he feels more hopeful today about recovery, and that he did call access line to get screened for [place] yesterday. Awaiting approval. At this time patient denies any suicidal thoughts and denies homicidal ideations, intent or plan. Patient denies any auditory, visual hallucinations and is endorsing paranoia and delusions. Patient denies any side effects from the medications and has been compliant with meds. Mental Status Exam: General Appearance: Patient appears to be older than stated age, is alert, directable, and cooperative. Several tattoos, dressed in his own clothes. Patient is balding, and has no teeth. Behavior: Patient is calmly seated without any agitated behavior. Speech: Patient's speech is fluent and nonpressured. soft spoken Mood/Affect: Mood is anxious, affect is congruent and constricted. Suicidality/Homicidality: Patient denies having any suicidal or homicidal ideation intent or plan. Perceptions: Patient denies any visual hallucinations and denies any auditory hallucinations Though content/process: There is no evidence of any delusional thought content and thought process is linear and goal-directed. Rambling, tangential. mildly improving Memory and concentration: AOX3, grossly intact for the purposes of this session Judgment and insight: poor, Improving mildly Assessment: Adjustment disorder with mixed emotional features Depressive disorder unspecified Alcohol use disorder, in early remission Opiate use disorder, in early remission Cannabis use disorder, in early remission Stimulant use disorder, in early remission Nicotine dependance Plan: -Patient continues to meet criteria for inpatient psychiatric admission for symptom stabilization and safety. Patient has signed adult voluntary form and medication consent and was placed in patient's chart. -Medications: Zyprexa 7.5 mg po qhs for psychosis/mood stabilization, change Cymbalta 90mg PO qhs for mood/anxiety add visteral 25mg bid for anxiety -When necessary Ativan and Haldol for agitation/aggression. -NRT -nicotine patch -SW on board for discharge planning. Encouraged the patient to participate in milieu. Patient did the screening for rehab, awaiting approval.
[2023-09-02] MEDS: hydrOXYzine pamoate 25 MG CAP PO SCH (12:40)
[2023-09-02] MEDS ORDERED: DULoxetine HCL 60 MG CAPSULE.DR PO SCH (21:00)
--- NOTE | 2023-09-03 11:33 | P.PN ---
Progress Note - Text Progress Note Date: 09/03/23 Interval History: Patient was seen today and was agreeable to speak to creative writer in the office. Ryann infante states that he is "out of sorts" today. He claims that he is still having some anxiety, it is about the same, but not getting worse. Patient states that he is sleeping well, and that he is eating well, his appetite is getting better. Patient is focused on staying sober, and ruminating on sobriety. Worrying about not getting better, and going and using again. Spoke with patient about adding Lamictal to his medication regimen, to stabilize his mood, patient agreeable. Yeast Pumper informed patient to watch for a rash, and to let creative writer or nursing staff know. Patient verbalized understanding. At this time patient denies any suicidal thoughts and denies homicidal ideations, intent or plan. Patient denies any auditory, visual hallucinations and is endorsing paranoia and delusions. Patient denies any side effects from the medications and has been compliant with meds. Mental Status Exam: General Appearance: Patient appears to be older than stated age, is alert, directable, and cooperative. Several tattoos, dressed in his own clothes. Patient is balding, and has no teeth. Behavior: Patient is calmly seated without any agitated behavior. Speech: Patient's speech is fluent and nonpressured. soft spoken Mood/Affect: Mood is anxious, affect is congruent and constricted. Suicidality/Homicidality: Patient denies having any suicidal or homicidal ideation intent or plan. Perceptions: Patient denies any visual hallucinations and denies any auditory hallucinations Though content/process: There is no evidence of any delusional thought content and thought process is linear and goal-directed. Rambling, tangential. mildly improving Memory and concentration: AOX3, grossly intact for the purposes of this session Judgment and insight: poor, Improving mildly Assessment: Adjustment disorder with mixed emotional features Depressive disorder unspecified Alcohol use disorder, in early remission Opiate use disorder, in early remission Cannabis use disorder, in early remission Stimulant use disorder, in early remission Nicotine dependance Plan: -Patient continues to meet criteria for inpatient psychiatric admission for symptom stabilization and safety. Patient has signed adult voluntary form and medication consent and was placed in patient's chart. -Medications: Zyprexa 7.5 mg po qhs for psychosis/mood stabilization, Cymbalta 90mg PO qhs for mood/anxiety visteral 25mg bid for anxiety add Lamictal 25mg bid for mood stabilization. Patient advised to watch for a rash, and to let creative writer or nursing staff know if he notices a rash -When necessary Ativan and Haldol for agitation/aggression. -NRT -nicotine patch -SW on board for discharge planning. Encouraged the patient to participate in milieu. Patient did the screening for rehab, awaiting approval. Likely discharge early next week, if patient psychiatrically stable
[2023-09-03] MEDS: lamoTRIgine 25 MG TAB PO SCH (11:34)
[2023-09-03] MEDS: methocarbamoL 500 MG TAB PO PRN (13:47)
[2023-09-03] MEDS: IBUPROFEN 600 MG TAB PO PRN (21:01)
--- NOTE | 2023-09-04 13:03 | P.PN ---
Progress Note - Text Progress Note Date: 09/04/23 Interval History: Patient was seen today and was agreeable to speak to pattern chart writer in the office. Ryann infante states that he is feeling increase in his mood. He states he is having intense, vivid dreams. Patient states that he did sleep well, despite the dreams. His appetite is getting better. Patient is focused on staying sober, but is not ruminating on it as much today. Patient is still endorsing some anxiety. Patient offered no other complaints, patient is not noticing a rash from the lamictal. At this time patient denies any suicidal thoughts and denies homicidal ideations, intent or plan. Patient denies any auditory, visual hallucinations and is endorsing paranoia and delusions. Patient denies any side effects from the medications and has been compliant with meds. Mental Status Exam: General Appearance: Patient appears to be older than stated age, is alert, directable, and cooperative. Several tattoos, dressed in his own clothes. Patient is balding, and has no teeth. Behavior: Patient is calmly seated without any agitated behavior. Speech: Patient's speech is fluent and nonpressured. Very talkative Mood/Affect: Mood is anxious, affect is congruent and constricted. Suicidality/Homicidality: Patient denies having any suicidal or homicidal ideation intent or plan. Perceptions: Patient denies any visual hallucinations and denies any auditory hallucinations Though content/process: There is no evidence of any delusional thought content and thought process is linear and goal-directed. Rambling, tangential. mildly improving Memory and concentration: AOX3, grossly intact for the purposes of this session Judgment and insight: Improving mildly Assessment: Adjustment disorder with mixed emotional features Depressive disorder unspecified Alcohol use disorder, in early remission Opiate use disorder, in early remission Cannabis use disorder, in early remission Stimulant use disorder, in early remission Nicotine dependance Plan: -Patient continues to meet criteria for inpatient psychiatric admission for symptom stabilization and safety. Patient has signed adult voluntary form and medication consent and was placed in patient's chart. -Medications: decrease Zyprexa 5 mg po qhs for psychosis/mood stabilization, increase Cymbalta 60mg PO bid for mood/anxiety, increase visteral 50 mg bid for anxiety, Lamictal 25mg bid for mood stabilization. Patient advised to watch for a rash, and to let pattern chart writer or nursing staff know if he notices a rash -When necessary Ativan and Haldol for agitation/aggression. -NRT -nicotine patch -SW on board for discharge planning. Encouraged the patient to participate in milieu. Patient did the screening for rehab, awaiting approval. Likely discharge early next week directly to rehab due to patients high liklihood of potential relapse if patient psychiatrically stable
[2023-09-04] MEDS: hydrOXYzine pamoate 25 MG CAP PO SCH (20:10)
[2023-09-04] MEDS: DULoxetine HCL 60 MG CAPSULE.DR PO SCH (20:10)
[2023-09-04] MEDS: OLANZapine 5 MG TAB PO SCH (20:11)
--- NOTE | 2023-09-05 11:18 | P.PN ---
Progress Note - Text Progress Note Date: 09/05/23 Interval history: Patient was seen laying in his bed today and was directable and agreeable to speak with food writer. He claims that he is doing a bit better today, continues to state that he is dealing with his anxiety and mood. Believes that the medications have been helping, states that he is sleeping well at nighttime. He spoke more about his family and his motivations to stay sober. Continues to focus on discharge and also on going to rehab.. At this time patient denies any suicidal or homicidal ideations intent or plan. Denies any Auditory or visual hallucinations. Patient denies any side effects from the medications and has been compliant with meds. Mental status exam: General Appearance: Patient appears to be thin, several tattoos, stated age is alert, directable, and cooperative. Behavior: No agitated behavior. Patient is calm and directable Speech: Patient's speech is fluent and nonpressured. Mood/Affect: Mood is improving mildly, affect is congruent and constricted. Suicidality/Homicidality: Patient denies having any suicidal or homicidal ideation intent or plan. Perceptions: Patient denies any auditory or visual hallucinations. Though content/process: There is no evidence of any delusional thought content and thought process is linear and goal-directed. Memory and concentration: AOX3, grossly intact for the purposes of this session Judgment and insight: improving mildly Assessment/Plan: Continue with current diagnosis. Patient continues to meet cri teria for inpatient psychiatric admission for symptom stabilization and safety. Patient will be maintained on current psychotropic medication regimen. Monitor for medication compliance and for any psychotropic medication side effects. Will continue to monitor ongoing response to treatment. Encouraged participation in milieu.
--- NOTE | 2023-09-06 13:04 | P.PN ---
Progress Note - Text Progress Note Date: 09/06/23 Interval history: Patient was seen up and in the unge, interacting with other patients on the unit. Patient states that he is doing a bit better today, states that his anxiety is "up-and-down during the day". He states that overall he realizes the importance of medications and treatment. He is thankful for the help he is receiving. Continues to remain focused on going to rehab at this time. States that he is having night sweats and does not know what they are coming from, we spoke about the medications that he is on currently. Claims that his appetite is fair has been going to groups. Continues to focus on discharge and also on going to rehab.. At this time patient denies any suicidal or homicidal ideations intent or plan. Denies any Auditory or visual hallucinations. Patient denies any side effects from the medications and has been compliant with meds. Mental status exam: General Appearance: Patient appears to be thin, several tattoos, stated age is alert, directable, and cooperative. Behavior: No agitated behavior. Patient is calm and directable Speech: Patient's speech is fluent and nonpressured. Mood/Affect: Mood is improving mildly, affect is congruent and constricted. Suicidality/Homicidality: Patient denies having any suicidal or homicidal ideation intent or plan. Perceptions: Patient denies any auditory or visual hallucinations. Though content/process: There is no evidence of any delusional thought content and thought process is linear and goal-directed. More future oriented Memory and concentration: AOX3, grossly intact for the purposes of this session Judgment and insight: improving mildly Assessment/Plan: Continue with current diagnosis. Patient continues to meet criteria for inpatient psychiatric admission for symptom stabilization and safety. Patient will be maintained on current psychotropic medication regimen, with the exception of starting clonidine 0.1 mg nightly for sleep/night sweats. Monitor for medication compliance and for any psychotropic medication side effects. Will continue to monitor ongoing response to treatment. Encouraged participation in milieu.
[2023-09-06] MEDS: cloNIDine HCL 0.1 MG TAB PO SCH (20:22)
--- NOTE | 2023-09-07 11:53 | P.PN ---
Progress Note - Text Progress Note Date: 09/07/23 Interval History: Patient was seen today in group, and was agreeable to speak to marketing writer in the office. Patient states his mood is a little low today. Patient is saying his anxiety is through the roof. Patient states that he is not noticing a rash from the lamictal, and is tolerating the medication. Hardboard Panel Printer spoke with patient about adding buspar to his medication regimen to help for anxiety, patient agreeable. Patient offered no other complaints. At this time patient denies any suicidal thoughts and denies homicidal ideations, intent or plan. Patient denies any auditory, visual hallucinations and is endorsing paranoia and delusions. Patient denies any side effects from the medications and has been compliant with meds. remains focused on sobriety and going into rehab however is unsure of the plan. Mental Status Exam: General Appearance: Patient appears to be older than stated age, is alert, directable, and cooperative. Several tattoos, dressed in his own clothes. Patient is balding, and has no teeth. Behavior: Patient is calmly seated without any agitated behavior Speech: Patient's speech is fluent and nonpressured. talkative Mood/Affect: Mood is anxious, low mood, affect is congruent and constricted. Suicidality/Homicidality: Patient denies having any suicidal or homicidal ideation intent or plan. Perceptions: Patient denies any visual hallucinations and denies any auditory hallucinations Though content/process: There is no evidence of any delusional thought content and thought process is linear and goal-directed. Rambling, tangential. mildly improving Memory and concentration: AOX3, grossly intact for the purposes of this session Judgment and insight: Improving mildly Assessment: Adjustment disorder with mixed emotional features Depressive disorder unspecified Alcohol use disorder, in early remission Opiate use disorder, in early remission Cannabis use disorder, in early remission Stimulant use disorder, in early remission Nicotine dependance Plan: -Patient continues to meet criteria for inpatient psychiatric admission for symptom stabilization and safety. Patient has signed adult voluntary form and medication consent and was placed in patient's chart. -Medications: Zyprexa 5 mg po qhs for psychosis/mood stabilization, Cymbalta 60mg PO bid for mood/anxiety, add Buspar 20mg po TID PRN, for anxiety, visteral 50 mg bid for anxiety, increase Lamictal 50mg bid for mood stabilization. Patient advised to watch for a rash, and to let marketing writer or nursing staff know if he notices a rash -When necessary Ativan and Haldol for agitation/aggression. -NRT -nicotine patch -SW on board for discharge planning. Encouraged the patient to participate in milieu. Patient did the screening for rehab, awaiting approval. Likely discharge tomorrow vs Thursday, still waiting intake at [facility] however pateint is now open to going to [facility] if needed instead.
[2023-09-07] MEDS: busPIRone HCl 10 MG TAB PO PRN (14:40)
[2023-09-07] MEDS: lamoTRIgine 25 MG TAB PO SCH (20:01)
[2023-09-08 07:24] VITALS: BP 112/65; PULSE 57; RESP 18; TEMP 98
--- NOTE | 2023-09-08 10:05 | P.DS ---
Providers Date of admission: 08/29/23 23:25 Expected date of discharge: 09/08/23 Attending physician: Paul Porter MD Consults: 08/29/23 23:35 Consult Physician Routine Consulting Provider: Petros Physician Consult Reason/Comments: H&P and medical Do you want consulting provider notified?: Yes Primary care physician: Stated None - Discharge Diagnosis(es) (1) Adjustment disorder with mixed emotional features Current Visit: Yes Status: Acute Priority: High (2) Major depressive disorder, recurrent, unspecified Current Visit: Yes Status: Acute Priority: High (3) Alcohol use disorder, mild, in early remission Current Visit: Yes Status: Acute Priority: Medium (4) Cannabis use disorder, severe, in early remission Current Visit: Yes Status: Acute Priority: Medium (5) Stimulant use disorder Current Visit: Yes Status: Acute Priority: Medium (6) Nicotine dependence Current Visit: Yes Status: Acute Priority: Low (7) Opioid use disorder, moderate, in early remission Current Visit: Yes Status: Acute Priority: Medium Hospital Course: Admission HPI: Admission note was completed by Dr Scherer "This is a psychiatric assessment on Juan Pablo Mcintosh who is a 48-year-old male with a long history of polysubstance use disorder Patient reports that he has had problems with multiple drugs and that he has been self-medicating to treat himself but he thinks that he has an underlying mental illness that nobody has been able to figure out. He states that he needs to get to the bottom of this and that he is here for that reason He states that he has been feeling depressed and frustrated and overwhelmed He states that he currently is living in a trailer home and that has been through several different retirement homes and three fourths homes He states that he was last using heroin quite heavily and that alcohol and marijuana has also been a major addiction issues He states that he has been through Suboxone and methadone in the pastHe admits that he has not had any psychiatric follow-up but that he has had few admissions in the past related to his substance use. He denies any suicidal ideations or plans but states that he has had some vague thoughts" Hospital course: Upon admission to the unit patient was directable and agreeable to commence treatment and signed adult voluntary form. Patient was initially isolative, depressed however with time and treatment he eventually got along well with other patients on the unit and followed unit protocol. Patient was compliant with the medications and denied any side effects throughout hospital course. Patient was started on Zyprexa increased to dose of 5 mg nightly for psychosis/mood stabilization/insomnia, Cymbalta 60 mg p.o. twice daily for mood/anxiety, BuSpar 30 mg twice daily as needed for anxiety, Vistaril 50 mg twice daily scheduled for anxiety with as needed option. Lamictal 50 mg twice daily for mood stabilization/depression. Patient was informed of the possibility of a side effect rash of the medication however he did not report this and will continue to monitor. Patient spoke of his stressors and engaged in therapy both group and individual. Patient was also seen by medical team for history and physical exam. Throughout the course of the hospitalization patient gradually improved with regards to mood, anxiety, agitation, sleep and became more future oriented with improved insight and judgment. On the day of discharge patient denied any suicidal or homicidal ideations intent or plan denied any auditory or visual hallucinations. Patient endorsed wanting to live for his health and family. The patient denied any access to guns or weapons. Patient denied any paranoia and did not endorse any delusions. Patient does have a significant history of substance abuse and was counseled on abstaining from all substances including alcohol and marijuana. Patient went through the screening for rehab and got into [facility] for inpatient rehab today. Patient was also counseled on the medications and need for regular compliance and was encouraged to follow-up with their outpatient appointment for mental health and also for primary care. Mental status exam: General Appearance: Patient appears to be thin, balding, stated age is alert, pleasant, and cooperative. Patient is in no acute distress and has improved hygiene and grooming Behavior: Patient is calmly seated without any agitated behavior. Speech: Patient's speech is fluent and nonpressured. Mood/Affect: Patient reports their mood is "better", affect is congruent and euthymic. Suicidality/Homicidality: Patient denies having any suicidal or homicidal ideation intent or plan. Perceptions: Patient denies any auditory or visual hallucinations. Though content/process: There is no evidence of any delusional thought content and thought process is linear and goal-directed. More future oriented Memory and concentration: AOX3, grossly intact for the purposes of this session. Can spell "WORLD" backwards correctly. Judgment and insight: improved with guarded prognosis Impression: Adjustment disorder with mixed emotional features Depressive disorder unspecified Alcohol use disorder, in early remission Opiate use disorder, in early remission Cannabis use disorder, in early remission Stimulant use disorder, in early remission Nicotine dependance Plan: -Continue with discharge today as patient has improved and stabilized psychiatrically and is not currently an imminent threat to himself and/or others. Patient will remain at chronically elevated risk for harm to self and/or others due to his impulsivity and history of substance abuse. -Continue medications: zyprexa 5 mg qhs for mood stabilization/psychosis/insomnia, cymbalta 60 mg bid for mood/anxiety, buspar 30 mg bid prn for anxiety, Vistaril 50 mg twice daily scheduled for anxiety +50 mg daily as needed for anxiety. Lamictal 50 mg twice daily for mood stabilization/depression. Added Remeron 15 mg nightly as needed for insomnia. -Patient was counseled on the need for medication compliance and appropriate follow-up at mental health and also primary care for medical issues. Patient verbalized understanding and agreed. -Social work to help coordinate patient's discharge today to rehab. Social work also to arrange for patients follow up appointments with [facility] for psychiatric care along with follow up with primary care provider. -Patient counseled on abstaining from recreational drugs and marijuana and alcohol. Was informed/educated on the adverse effects on their physical and mental health. Patient verbally agreed and understood. -Patient was instructed to return to the hospital or seek immediate medical care if their psychiatric or medical symptoms do worsen or reoccur. Allergies Allergy/AdvReac Type Severity Reaction Status Date / Time No Known Allergies Allergy Verified 08/29/23 16:58 Laboratory Results WBC 10.7 k/uL (3.8-10.6) H 08/29/23 17:39 RBC 5.06 m/uL (4.30-5.90) 08/29/23 17:39 Hgb 16.0 gm/dL (13.0-17.5) 08/29/23 17:39 Hct 48.3 % (39.0-53.0) 08/29/23 17:39 MCV 95.3 fL (80.0-100.0) 08/29/23 17:39 MCH 31.5 pg (25.0-35.0) 08/29/23 17:39 MCHC 33.1 g/dL (31.0-37.0) 08/29/23 17:39 RDW 11.8 % (11.5-15.5) 08/29/23 17:39 Plt Count 237 k/uL (150-450) 08/29/23 17:39 MPV 8.2 08/29/23 17:39 Neutrophils % 62 % 08/29/23 17:39 Lymphocytes % 26 % 08/29/23 17:39 Monocytes % 7 % 08/29/23 17:39 Eosinophils % 1 % 08/29/23 17:39 Basophils % 1 % 08/29/23 17:39 Neutrophils # 6.7 k/uL (1.3-7.7) 08/29/23 17:39 Lymphocytes # 2.8 k/uL (1.0-4.8) 08/29/23 17:39 Monocytes # 0.7 k/uL (0-1.0) 08/29/23 17:39 Eosinophils # 0.2 k/uL (0-0.7) 08/29/23 17:39 Basophils # 0.1 k/uL (0-0.2) 08/29/23 17:39 Sodium 139 mmol/L (137-145) 08/29/23 17:39 Potassium 3.7 mmol/L (3.5-5.1) 08/29/23 17:39 Chloride 105 mmol/L (98-107) 08/29/23 17:39 Carbon Dioxide 25 mmol/L (22-30) 08/29/23 17:39 Anion Gap 9 mmol/L 08/29/23 17:39 BUN 8 mg/dL (9-20) L 08/29/23 17:39 Creatinine 1.05 mg/dL (0.66-1.25) 08/29/23 17:39 Est GFR (CKD-EPI)AfAm >90 (>60 ml/min/1.73 sqM) 08/29/23 17:39 Est GFR (CKD-EPI)NonAf 85 (>60 ml/min/1.73 sqM) 08/29/23 17:39 Glucose 128 mg/dL (74-99) H 08/29/23 17:[address] Glu mg/dL 114 mg/dL 08/29/23 17:39 Hemoglobin A1c 5.6 % (<=6.0) 08/29/23 17:39 Calcium 9.5 mg/dL (8.4-10.2) 08/29/23 17:39 Total Bilirubin 0.6 mg/dL (0.2-1.3) 08/29/23 17:39 AST 39 U/L (17-59) 08/29/23 17:39 ALT 32 U/L (4-49) 08/29/23 17:39 Alkaline Phosphatase 58 U/L (38-126) 08/29/23 17:39 Total Protein 6.9 g/dL (6.3-8.2) 08/29/23 17:39 Albumin 4.6 g/dL (3.5-5.0) 08/29/23 17:39 Triglycerides 153.00 mg/dL (0.00-149.00) H 08/29/23 17:39 Cholesterol 196.00 mg/dL (0.00-200.00) 08/29/23 17:39 LDL Cholesterol, Calc 104.1 mg/dL (0.0-131.0) 08/29/23 17:39 VLDL Cholesterol, Calc 30.60 mg/dL (5.00-40.00) 08/29/23 17:39 HDL Cholesterol 61.30 mg/dL (40.00-60.00) H 08/29/23 17:39 Cholesterol/HDL Ratio 3.20 Ratio 08/29/23 17:39 Lipase 64 U/L (23-300) 08/29/23 17:39 TSH 0.724 mIU/L (0.465-4.680) 08/29/23 17:39 Urine Color Colorless 08/29/23 17:39 Urine Appearance Clear (Clear) 08/29/23 17:39 Urine pH 6.0 (5.0-8.0) 08/29/23 17:39 Ur Specific [place] 1.004 (1.001-1.035) 08/29/23 17:39 Urine Protein Negative (Negative) 08/29/23 17:39 Urine Glucose (UA) Negative (Negative) 08/29/23 17:39 Urine Ketones Negative (Negative) 08/29/23 17:39 Urine Blood Negative (Negative) 08/29/23 17:39 Urine Nitrite Negative (Negative) 08/29/23 17:39 Urine Bilirubin Negative (Negative) 08/29/23 17:39 Urine Urobilinogen <2.0 mg/dL (<2.0) 08/29/23 17:39 Ur Leukocyte Esterase Negative (Negative) 08/29/23 17:39 Salicylates <1.0 mg/dL 08/29/23 17:39 Urine Opiates Screen Not Detected (NotDetected) 08/29/23 17:39 Ur Oxycodone Screen Not Detected (NotDetected) 08/29/23 17:39 Urine Methadone Screen Not Detected (NotDetected) 08/29/23 17:39 Acetaminophen <10.0 ug/mL 08/29/23 17:39 Ur Barbiturates Screen Not Detected (NotDetected) 08/29/23 17:39 U Tricyclic Antidepress Not Detected (NotDetected) 08/29/23 17:39 Ur Phencyclidine Scrn Not Detected (NotDetected) 08/29/23 17:39 Ur Amphetamines Screen Not Detected (NotDetected) 08/29/23 17:39 U Methamphetamines Scrn Not Detected (NotDetected) 08/29/23 17:39 U Benzodiazepines Scrn Not Detected (NotDetected) 08/29/23 17:39 Urine Cocaine Screen Not Detected (NotDetected) 08/29/23 17:39 U Marijuana (THC) Screen Not Detected (NotDetected) 08/29/23 17:39 Serum Alcohol <10 mg/dL 08/29/23 17:39 SARS-CoV-2 (PCR) Not Detected (Not Detectd) 08/29/23 22:30 Vital Signs Temp 98.0 F 09/08/23 06:00 Pulse 57 L 09/08/23 06:00 Resp 18 09/08/23 06:00 BP 112/65 09/08/23 06:00 Pulse Ox 99 09/08/23 06:00 FiO2 Patient Condition at Discharge: Stable Plan - Discharge Summary Discharge Rx Participant: No New Discharge Prescriptions: New hydrOXYzine HCL [Atarax] 50 mg PO DAILY PRN 30 Days #60 tab PRN Reason: Anxiety busPIRone HCL [Buspar] 30 mg PO BID PRN 30 Days #60 tablet PRN Reason: Anxiety cloNIDine HCL [Catapres] 0.1 mg PO HS 30 Days #30 tab DULoxetine HCL [Cymbalta] 60 mg PO BID 30 Days #60 cap lamoTRIgine [LaMICtal] 50 mg PO BID 30 Days #120 tab Ibuprofen [Motrin] 600 mg PO Q8H PRN tab PRN Reason: Moderate To Severe Pain (4-10) hydrOXYzine pamoate [Vistaril] 50 mg PO BID 30 Days #120 cap Nicotine 21Mg/24Hr Patch [Habitrol] 1 patch TRANSDERM DAILY 14 Days #14 patch methocarbamoL [Robaxin] 500 mg PO BID PRN 30 Days #60 tab PRN Reason: Muscle Spasm OLANZapine [ZyPREXA] 5 mg PO HS 30 Days #30 tab Mirtazapine [Remeron] 15 mg PO HS PRN 30 Days #30 tab PRN Reason: Insomnia Discharge Medication List DULoxetine HCL [Cymbalta] 60 mg PO BID 30 Days #60 cap 09/08/23 [Rx] Ibuprofen [Motrin] 600 mg PO Q8H PRN tab 09/08/23 [Rx] Mirtazapine [Remeron] 15 mg PO HS PRN 30 Days #30 tab 09/08/23 [Rx] Nicotine 21Mg/24Hr Patch [Habitrol] 1 patch TRANSDERM DAILY 14 Days #14 patch 09/08/23 [Rx] OLANZapine [ZyPREXA] 5 mg PO HS 30 Days #30 tab 09/08/23 [Rx] busPIRone HCL [Buspar] 30 mg PO BID PRN 30 Days #60 tablet 09/08/23 [Rx] cloNIDine HCL [Catapres] 0.1 mg PO HS 30 Days #30 tab 09/08/23 [Rx] hydrOXYzine HCL [Atarax] 50 mg PO DAILY PRN 30 Days #60 tab 09/08/23 [Rx] hydrOXYzine pamoate [Vistaril] 50 mg PO BID 30 Days #120 cap 09/08/23 [Rx] lamoTRIgine [LaMICtal] 50 mg PO BID 30 Days #120 tab 09/08/23 [Rx] methocarbamoL [Robaxin] 500 mg PO BID PRN 30 Days #60 tab 09/08/23 [Rx] Follow up Appointment(s)/Referral(s): [facility] [Outside] - 09/08/23 1:00 pm (Intake ) [facility] [NON-STAFF] - 1 Week Patient Instructions/Handouts: Depression (DC), Abuse of Alcohol (DC) Activity/Diet/Wound Care/Special Instructions: Avoid the use of street drugs and alcohol. Take all medications as prescribed. When you are in need of refills on your medications, please contact your medical provider and/or outpatient psychiatrist/provider to have this done. Please go to your scheduled outpatient appointment for aftercare treatment. If symptoms return or become worse, call the crisis line at and/or go to the nearest emergency room for evaluation. National Suicide Hotline 988 Discharge Disposition: OTHER INSTITUTION NOT DEFINED
== END 2023-09-08 10:25 | disposition other institution (70) | DRG 751 ==
LOC: EC 15:33 → 3MHU 23:25
PROVIDERS: ADMIT Psychiatry & Neurology Psychiatry; ATTEND Psychiatry & Neurology Psychiatry
DX: F33.9 Major depressive disorder, recurrent, unspecified (principal); F43.23 Adjustment disorder with mixed anxiety and depressed mood; G47.00 Insomnia, unspecified; K59.00 Constipation, unspecified; Q81.9 Epidermolysis bullosa, unspecified; Z79.899 Other long term (current) drug therapy; D72.829 Elevated white blood cell count, unspecified; G89.29 Other chronic pain; M54.9 Dorsalgia, unspecified; F10.11 Alcohol abuse, in remission; F11.21 Opioid dependence, in remission; F12.21 Cannabis dependence, in remission; F15.11 Other stimulant abuse, in remission; F17.210 Nicotine dependence, cigarettes, uncomplicated; F22 Delusional disorders; Z71.51 Drug abuse counseling and surveillance of drug abuser; Z28.310 Unvaccinated for COVID-19; Z11.52 Encounter for screening for COVID-19; Z86.19 Personal history of other infectious and parasitic diseases; Z28.21 Immunization not carried out because of patient refusal
CPT/HCPCS: 36415; 80053; 80061; 80143; 80179; 80306; 80320; 81003; 82075; 83036; 83690; 84443; 85025; 87635; 96360; 96361; 99285

== ENCOUNTER 2023-09-24 13:33 | Emergency (ER) | payer OTHER ==
--- NOTE | 2023-09-24 14:08 | ED ---
Upper Extremity HPI - General Source: patient, RN notes reviewed Mode of arrival: ambulatory Limitations: no limitations <Krista Orlando - Last Filed: 09/24/23 14:06> - General Source: patient, RN notes reviewed, old records reviewed Mode of arrival: ambulatory Limitations: no limitations - History of Present Illness MD Complaint: Injury to:: left, hand, finger (Fifth digit) -: days(s) Other Extremity Injury: Fingers: Left Other Injuries: none Handedness: right Place: home Severity scale (1-10): 3 Worsens With: none Context: direct blow Associated Symptoms: denies other symptoms Treatments Prior to Arrival: bandage <Juan Luis Aldana - Last Filed: 10/07/23 20:24> - General Chief Complaint: Extremity Injury, Upper Stated Complaint: Injury to L hand Time Seen by Provider: 09/24/23 13:50 - History of Present Illness Initial Comments: Ansley notevalencia is a 48-year-old male presents emergency department chief complaint of pain to his hand fifth digit. Patient history of spine doctor yesterday when he called [facility] causing pain to his left ankle. Denies any wrist pain. (Krista Orlando) This is a 48-year-old male with left fifth digit finger pain. This occurred while playing catch, patient has had persistent pain in that left fifth digit (Juan Luis Aldana) - Related Data Previous Rx's Medication Instructions Recorded DULoxetine HCL [Cymbalta] 60 mg PO BID 30 Days #60 cap 09/08/23 Ibuprofen [Motrin] 600 mg PO Q8H PRN tab 09/08/23 Mirtazapine [Remeron] 15 mg PO HS PRN 30 Days #30 tab 09/08/23 Nicotine 21Mg/24Hr Patch [Habitrol] 1 patch TRANSDERM DAILY 14 Days 09/08/23 #14 patch OLANZapine [ZyPREXA] 5 mg PO HS 30 Days #30 tab 09/08/23 busPIRone HCL [Buspar] 30 mg PO BID PRN 30 Days #60 tablet 09/08/23 cloNIDine HCL [Catapres] 0.1 mg PO HS 30 Days #30 tab 09/08/23 hydrOXYzine HCL [Atarax] 50 mg PO DAILY PRN 30 Days #60 tab 09/08/23 hydrOXYzine pamoate [Vistaril] 50 mg PO BID 30 Days #120 cap 09/08/23 lamoTRIgine [LaMICtal] 50 mg PO BID 30 Days #120 tab 09/08/23 methocarbamoL [Robaxin] 500 mg PO BID PRN 30 Days #60 tab 09/08/23 Allergies Allergy/AdvReac Type Severity Reaction Status Date / Time No Known Allergies Allergy Verified 09/24/23 13:40 Review of Systems ROS Other: All systems not noted in ROS Statement are negative. <Krista Orlando - Last Filed: 09/24/23 14:06> ROS Other: All systems not noted in ROS Statement are negative. <Juan Luis Aldana - Last Filed: 10/07/23 20:24> ROS Statement: Those systems with pertinent positive or pertinent negative responses have been documented in the HPI. 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 History of Any Multi-Drug Resistant Organisms: None Reported Past Surgical History: Orthopedic Surgery Additional Past Surgical History / Comment(s): KNEE Past Anesthesia/Blood Transfusion Reactions: No Reported Reaction Past Psychological History: Anxiety, Depression Smoking Status: Former smoker Past Alcohol Use History: None Reported Past Drug Use History: Cocaine, Heroin, Marijuana <Krista Orlando - Last Filed: 09/24/23 14:06> General Exam Limitations: no limitations <Krista Orlando - Last Filed: 09/24/23 14:06> General appearance: alert, in no apparent distress Head exam: Present: atraumatic, normocephalic, normal inspection Eye exam: Present: normal appearance, PERRL, EOMI. Absent: scleral icterus, conjunctival injection, periorbital swelling ENT exam: Present: normal exam, mucous membranes moist Neck exam: Present: normal inspection. Absent: tenderness, meningismus, lymphadenopathy Respiratory exam: Present: normal lung sounds bilaterally. Absent: respiratory distress, wheezes, rales, rhonchi, stridor Cardiovascular Exam: Present: regular rate, normal rhythm, normal heart sounds. Absent: systolic murmur, diastolic murmur, rubs, gallop, clicks GI/Abdominal exam: Present: soft, normal bowel sounds. Absent: distended, tenderness, guarding, rebound, rigid Extremities exam: Present: normal inspection, full ROM, normal capillary refill. Absent: tenderness, pedal edema, joint swelling, calf tenderness Back exam: Present: normal inspection Neurological exam: Present: alert, oriented X3, CN II-XII intact Psychiatric exam: Present: normal affect, normal mood Skin exam: Present: warm, dry, intact, normal color. Absent: rash <Juan Luis Aldana - Last Filed: 10/07/23 20:24> - General Exam Comments Initial Comments: Visual Physical Exam Vital signs reviewed General: Well-appearing, nontoxic, no acute distress. Head: Normocephalic, atraumatic Eyes: PERRLA, EOMI ENT: Airway patent Chest: Nonlabored breathing Skin: No visual rash, normal skin tone Neuro: Alert and oriented 3 Musculoskeletal: No gross abnormalities (Stieler,Krista) Course <Juan Luis Aldana - Dell Filed: 10/07/23 20:24> Vital Signs 09/24/23 09/24/23 13:39 17:09 Temperature 97.8 F 98.0 F Pulse Rate 90 91 Respiratory 18 16 Rate Blood Pressure 132/82 129/81 O2 Sat by Pulse 98 100 Oximetry - Reevaluation(s) Reevaluation #1: Records reviewed (Juan Luis Aldana) Reevaluation #2: Symptoms unchanged (Juan Luis Aldana) Reevaluation #3: Patient informed of results questions answered (Juan Luis Aldana) Reevaluation #4: 10/05/23 07:31 Was pt. sent in by a medical professional or institution (, PA, CAMERA ENGINEER, urgent care, hospital, or intermediate...) When possible be specific @ -no Did you speak to anyone other than the patient for history (EMS, parent, family, police, friend...)? What history was obtained from this source @ -no Did you review nursing and triage notes (agree or disagree)? Why? @ -agree Are old charts reviewed (outside hosp., previous admission, EMS record, old EKG, old radiological studies, urgent care reports/EKG's, intermediate records)? Report findings @ -yes Differential Diagnosis (chest pain, altered mental status, abdominal pain women, abdominal pain men, vaginal bleeding, weakness, fever, dyspnea, syncope, headache, dizziness, GI bleed, back pain, seizure, CVA, palpatations, mental health, musculoskeletal)? @ -prior EKG interpreted by me (3pts min.). @ -no X-rays interpreted by me (1pt min.). @ -yes negative for acute disease CT interpreted by me (1pt min.). @ -no U/S interpreted by me (1pt. min.). @ -no What testing was considered but not performed or refused? (CT, X-rays, U/S, labs)? Why? @ -none What meds were considered but not given or refused? Why? @ -none Did you discuss the management of the patient with other professionals (professionals i.e. , PA, CAMERA ENGINEER, lab, RT, psych nurse, social media marketer, house furnishings supervisor, teacher, quarantine officer, nurse case manager)? Give summary @ -no Was smoking cessation discussed for >3mins.? @ -no Were there social determinants of health that impacted care today? How? (Homelessness, low income, unemployed, alcoholism, drug addiction, transportation, low edu. Level, literacy, decrease access to med. care, senior care, rehab)? @ -none Was there de-escalation of care discussed even if they declined (Discuss DNR or withdrawal of care, Hospice)? DNR status @ -no What co-morbidities impacted this encounter? (DM, HTN, Smoking, COPD, CAD, Cancer, CVA, ARF, Chemo, Hep., AIDS, mental health diagnosis, sleep apnea, morbid obesity)? @ -none Was patient admitted / discharged? Hospital course, mention meds given and route, prescriptions, significant lab abnormalities, going to OR and other pertinent info. @ - 48-year-old male to ER for a couple days of finger pain while playing catch, patient does have finger pain and swelling although no significant findings of fracture or dislocation. Patient likely had dislocated and relocated digit, patient has no other complaints currently can be discharged home Discharge Was critical care preformed (if so, how long)? @ -no Undiagnosed new problem with uncertain prognosis? @ -no Drug Therapy requiring intensive monitoring for toxicity (Heparin, Nitro, Insulin, Cardizem)? @ -no Were any procedures done? @ -no Diagnosis/symptom? @ -finger sprain, finger pain Acute, or Chronic, or Acute on Chronic? @ -Acute Uncomplicated (without systemic symptoms) or Complicated (systemic symptoms)? @ -Complicated Side effects of treatment? @ -no Exacerbation, Progression, or Severe Exacerbation? @ -exacerbation Poses a threat to life or bodily function? How? (Chest pain, [place], ME, pneumonia, PE, COPD, DKA, ARF, appy, cholecystitis, CVA, Diverticulitis, Homicidal, Suicidal, threat to staff... and all critical care pts) @ -no (Juan Luis Aldana) Procedures - Orthopedic Joint Reduction Joint #1 Consent Obtained: verbal consent Side: left Joint Reduction Location: finger Technique Used: traction/counter-traction Post Reduction X-Ray Obtained: No Post Reduction X-Ray Results: reduced (Patient improved) Splint Applied: Yes Patient Tolerated Procedure: well <Juan Luis Aldana - Last Filed: 10/07/23 20:24> Medical Decision Making <Krista Orlando - Last Filed: 09/24/23 14:06> - Radiology Data Radiology results: report reviewed (X-ray hand is negative for traumatic injury), image reviewed <Juan Luis Aldana - Last Filed: 10/07/23 20:24> - Medical Decision Making I completed the quick note portion of this chart signed Krista Orlando PA-C (Krista Orlando) 48-year-old male to ER for a couple days of finger pain while playing catch, patient does have finger pain and swelling although no significant findings of fracture or dislocation. Patient likely had dislocated and relocated digit, patient has no other complaints currently can be discharged home (Juan Luis Aldana) Disposition <Krista Orlando - Last Filed: 09/24/23 14:06> Is patient prescribed a controlled substance at d/c from ED?: No Time of Disposition: 15:41 <Juan Luis Aldana - Last Filed: 10/07/23 20:24> Clinical Impression: Dislocation, finger, Finger pain, Dislocation of fifth finger, metacarpal joint, proximal, left, closed Disposition: HOME SELF-CARE Condition: Good Instructions (If sedation given, give patient instructions): Finger Sprain (ED), Swollen Joint (ED) Referrals: None,Stated [Primary Care Provider] - 1-2 days
--- NOTE | 2023-09-24 15:02 | XR ---
EXAMINATION TYPE: XR finger LT DATE OF EXAM: 09/24/2023 2:41 PM CLINICAL INDICATION:Male, 48 years old with history of injury, pain; [facility] COMPARISON: None TECHNIQUE: XR finger LT Frontal, lateral and oblique views were obtained. FINDINGS: Normal alignment of the visualized joints. No acute osseous pathology is identified. No e vidence of soft tissue swelling. Degeneration changes of the joints with mild joint space narrowing a nd osteophyte formation. No evidence of fracture. IMPRESSION: 1. No acute osseous pathology. 2. Mild multifocal degeneration changes.
[2023-09-24 17:39] VITALS: BP 129/81; PULSE 91; RESP 16; TEMP 98
== END 2023-09-24 17:15 | disposition home or self-care (01) ==
LOC: EC 13:33
DX: S63.257A Unspecified dislocation of left little finger, initial encounter (principal); Z87.891 Personal history of nicotine dependence; X58.XXXA Exposure to other specified factors, initial encounter; Y93.J2 Activity, drum and other percussion instrument playing
CPT/HCPCS: 99283

== ENCOUNTER 2024-03-08 11:53 | Emergency (ER) | payer OTHER ==
[2024-03-08 12:49] VITALS: RESP 18
--- NOTE | 2024-03-08 13:31 | ED ---
General Adult HPI - General Chief complaint: Psychiatric Symptoms Stated complaint: mental health Time Seen by Provider: 03/08/24 12:55 Source: patient, RN notes reviewed, old records reviewed Mode of arrival: ambulatory Limitations: no limitations - History of Present Illness Initial comments: This is a 49-year-old male who presents to the emergency department stating he has out of his Psych meds for 3 weeks. Patient states he is kind of winding down and becoming more paranoid and more agitated and he just wants to get back on his medications. Patient admits that he did miss an appointment because he has been moving around and just got a new job which she just lost on Thursday because of his attitude. Patient denies any nausea vomiting patient denies any suicidal ideations or homicidal ideations. Patient states he does not want to be admitted he just wants to get his meds and get back to his baseline because he thinks they were working really well - Related Data Home Medications Medication Instructions Recorded Confirmed OLANZapine [ZyPREXA] 7.5 mg PO HS 03/08/24 03/08/24 buPROPion XL [Wellbutrin XL] 300 mg PO DAILY 03/08/24 03/08/24 lamoTRIgine [LaMICtal] 100 mg PO DAILY 03/08/24 03/08/24 Previous Rx's Medication Instructions Recorded hydrOXYzine pamoate [Vistaril] 50 mg PO BID 30 Days #120 cap 09/08/23 OLANZapine [ZyPREXA] 7.5 mg PO HS #30 tab 03/08/24 lamoTRIgine [LaMICtal] 100 mg PO DAILY #30 tab 03/08/24 Allergies Allergy/AdvReac Type Severity Reaction Status Date / Time No Known Allergies Allergy Verified 03/08/24 13:29 Review of Systems ROS Statement: Those systems with pertinent positive or pertinent negative responses have been documented in the HPI. ROS Other: All systems not noted in ROS Statement are negative. 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 Patient is nontoxic and well- hydrated and is in no acute distress. ENT: Neck is soft and supple. No significant lymphadenopathy is noted. Oropharynx is clear. Moist mucous membranes. Neck has full range of motion without eliciting any pain. EYES: The sclera were anicteric and conjunctiva were pink and moist. Extraocular movements were intact and pupils were equal round and reactive to light. Eyelids were unremarkable. SKIN: Skin is clear with no lesions or rashes and otherwise unremarkable. NEUROLOGIC: Patient is alert and oriented x3. Cranial nerves II through XII are grossly intact. Motor and sensory are also intact. Normal speech, volume and content. Symmetrical smile. MUSCULOSKELETAL: Normal extremities with adequate strength and full range of motion. No lower extremity swelling or edema. No calf tenderness. PSYCHIATRIC: Patient states he is becoming paranoid and is becoming more agitated. Limitations: no limitations Course Vital Signs 03/08/24 12:44 Temperature 97.9 F Pulse Rate 73 Respiratory 18 Rate Blood Pressure 115/75 O2 Sat by Pulse 100 Oximetry Medical Decision Making - Medical Decision Making Was pt. sent in by a medical professional or institution (ERIC Nguyen, COTTAGE SUPERVISOR, urgent care, hospital, or fci...) When possible be specific @ -No Did you speak to anyone other than the patient for history (EMS, parent, family, police, friend...)? What history was obtained from this source @ -No Did you review nursing and triage notes (agree or disagree)? Why? @ -I reviewed and agree with nursing and triage notes Were old charts reviewed (outside hosp., previous admission, EMS record, old EKG, old radiological studies, urgent care reports/EKG's, fci records)? Report findings @ -No old charts were reviewed Differential Diagnosis? @ -Differential Mental Health Depression, anxiety, bipolar, psychosis, schizophrenia, borderline personality, situational depression, adjustment disorder, behavioral disorder, brain tumor, malingering, substance abuse, encephalopathy, medication reaction, dementia, hypothyroidism, degenerative neurologic disorder, lupus.... This is not meant to be all-inclusive list EKG interpreted by me (3pts min.). @ -As above X-rays interpreted by me (1pt min.). @ -None done CT interpreted by me (1pt min.). @ -None done U/S interpreted by me (1pt. min.). @ -None done What testing was considered but not performed or refused? (CT, X-rays, U/S, labs)? Why? @ -None What meds were considered but not given or refused? Why? @ -None Did you discuss the management of the patient with other professionals (professionals i.e. DrArmani, PA, COTTAGE SUPERVISOR, lab, RT, psych nurse, social problems specialist, seat nailer, teacher, chief innovation officer, spring encaser)? Give summary @ -No Was smoking cessation discussed for >3mins.? @ -No Was critical care preformed (if so, how long)? @ -No Were there social determinants of health that impacted care today? How? (Homelessness, low income, unemployed, alcoholism, drug addiction, transportation, low edu. Level, literacy, decrease access to med. care, senior living, rehab)? @ -No Was there de-escalation of care discussed even if they declined (Discuss DNR or withdrawal of care, Hospice)? DNR status @ -No What co-morbidities impacted this encounter? (DM, HTN, Smoking, COPD, CAD, Cancer, CVA, ARF, Chemo, Hep., AIDS, mental health diagnosis, sleep apnea, morbid obesity)? @ -None Was patient admitted / discharged? Hospital course, mention meds given and route, prescriptions, significant lab abnormalities, going to OR and other pertinent info. @ -Dr. Davidsons was contacted and he was in agreement that the patient could get his Lamictal and Zyprexa and he will follow-up as an outpatient from here going forward Undiagnosed new problem with uncertain prognosis? @ -No Drug Therapy requiring intensive monitoring for toxicity (Heparin, Nitro, Insulin, Cardizem)? @ -No Were any procedures done? @ -No Diagnosis/symptom? @ -Medication refill Acute, or Chronic, or Acute on Chronic? @ -Acute Uncomplicated (without systemic symptoms) or Complicated (systemic symptoms)? @ -Uncomplicated Side effects of treatment? @ -No Exacerbation, Progression, or Severe Exacerbation? @ -No Poses a threat to life or bodily function? How? (Chest pain, [place], [place], pneumonia, PE, COPD, DKA, ARF, appy, cholecystitis, CVA, Diverticulitis, Homicidal, Suicidal, threat to staff... and all critical care pts) @ -No Disposition Clinical Impression: Medication refill Disposition: HOME SELF-CARE Condition: Good Prescriptions: lamoTRIgine [LaMICtal] 100 mg PO DAILY #30 tab OLANZapine [ZyPREXA] 7.5 mg PO HS #30 tab Is patient prescribed a controlled substance at d/c from ED?: No Referrals: Nonstaff,Physician [Primary Care Provider] - 1-2 days Time of Disposition: 14:09
[2024-03-08 14:23] VITALS: BP 122/80; PULSE 71; TEMP 98.1
== END 2024-03-08 14:24 | disposition home or self-care (01) ==
LOC: EC 11:53
DX: Z76.0 Encounter for issue of repeat prescription (principal); F17.200 Nicotine dependence, unspecified, uncomplicated
CPT/HCPCS: 99281